=== PATIENT | male | born 1970 | race Caucasian/White ===

== ENCOUNTER 2021-02-16 10:05 | Observation (INO) | payer MEDICARE, OTHER ==
[2021-02-16] MEDS ORDERED: Aspirin Chewable 81 MG TAB ONE (10:42)
[2021-02-16 10:45] LABS: #Basophils 0.1 thou/uL (0.0-0.2); #Eosinphils 0.1 thou/uL (0.0-0.7); #Lymphocytes 2.1 thou/uL (1.20-3.40); #Monocytes 0.5 thou/uL (0.11-0.59); #Neutrophils 5.7 thou/uL (1.40-6.50); %Basophils 0.9 % (0.0-1.0); %Eosinophils 1.7 % (0.0-10.0); %Lymphocytes 25.1 % (21.0-51.0); %Monocytes 5.9 % (0.0-10.0); %Neutrophils 66.4 % (42.0-75.0); Hemoglobin 14.5 g/dL (14.0-18.0); Mean Corpuscular HGB CONC 33.7 g/dL (32.0-36.0); Mean Corpuscular Hemoglobin 30.9 pg (27.0-31.0); Mean Corpuscular Volume 91.8 fL (78.0-98.0); Mean Platelet Volume 8.4 fL (7.4-10.4); Platelet Count 198 thou/uL (130-400); RBC Distribution Width 12.1 % (11.5-14.5); Red Blood Cell (RBC) Count 4.67 mill/uL (4.70-6.10); White Blood Cell (WBC) Count 8.5 thou/uL (4.8-10.8)
[2021-02-16 11:05] LABS: ALT (SGPT) 16 U/L (8-55); AST (SGOT) 12 U/L (5-34); Alkaline Phosphatase 76 U/L (40-110); Anion Gap 13 mmol/L (10-20); BUN (Urea Nitrogen) 13 mg/dL (8.4-25.7); Bilirubin, Total 0.6 mg/dL (0.2-1.2); Calc. Creatinine Clearance 0 mL/min (70-130); Calcium 9.4 mg/dL (7.8-10.44); Carbon Dioxide 23 mmol/L (22-29); Chloride 105 mmol/L (98-107); Globulin 2.6 g/dL (2.4-3.5); Glucose 182 mg/dL (70-105); Potassium 3.8 mmol/L (3.5-5.1); Protein, Total 6.6 g/dL (6.0-8.3); Sodium 137 mmol/L (136-145)
[2021-02-16 11:27] LABS: CKMB 2.2 ng/mL (0-6.6)
[2021-02-16] MEDS ORDERED: Nitroglycerin 2% Ointment 1 INCH/1 GM Packet ONE (12:03)
[2021-02-16] MEDS ORDERED: traMADol HCl 50 MG TAB PO PRN (12:22)
[2021-02-16] MEDS ORDERED: Acetaminophen 325 MG TAB PO PRN (12:24)
[2021-02-16] MEDS ORDERED: Ondansetron PF 4 MG/2 ML Vial IVP PRN (12:24)
[2021-02-16] MEDS ORDERED: Dextrose 50% Abboject 50 ML SYRINGE SLOW IVP PRN (12:29)
[2021-02-16] MEDS ORDERED: Dextrose 5% in Water 1,000 ML IV PRN (12:29)
[2021-02-16 14:16] VITALS: BMI 31.4
[2021-02-16 14:53] LABS: Troponin I 0.037 ng/mL (< 0.028)
[2021-02-16] MEDS: HumaLOG 300 UNITS/3 ML VIAL SC PRN (16:40)
[2021-02-16 17:19] LABS: Troponin I 0.029 ng/mL (< 0.028)
[2021-02-16] MEDS: Ipratropium Bromide 2.5 ml Neb NEB SCH (18:02)
[2021-02-16] MEDS: Mometasone 100 MCG/Formoterol 5 MCG 120 PUFF INHALER INH SCH (18:02)
[2021-02-16 20:17] LABS: SARS-CoV-2 PCR by NAA Not Detected (NotDetected)
[2021-02-16] MEDS: Bupropion 150 MG XL TAB PO SCH (20:38)
[2021-02-16] MEDS: Carvedilol 6.25 MG TAB PO SCH (20:39)
[2021-02-16] MEDS: Sacubitril 49 MG/Valsartan 51 MG TABLET PO SCH (20:39)
[2021-02-16] MEDS ORDERED: HumaLOG 300 UNITS/3 ML VIAL SC PRN (20:57)
[2021-02-16] MEDS: busPIRone HCl 10 MG TAB PO SCH (21:00)
[2021-02-16] MEDS ORDERED: Lantus 1000 UNITS/10 ML VIAL SC SCH (21:00)
[2021-02-16] MEDS ORDERED: Atorvastatin Calcium 40 MG TAB PO SCH (21:00)
[2021-02-17] MEDS: Ipratropium Bromide 2.5 ml Neb NEB SCH ×2 (01:21→06:52)
[2021-02-17] MEDS: HumaLOG 300 UNITS/3 ML VIAL SC PRN (05:49)
[2021-02-17 06:11] LABS: #Basophils 0.1 thou/uL (0.0-0.2); #Eosinphils 0.2 thou/uL (0.0-0.7); #Lymphocytes 2.2 thou/uL (1.20-3.40); #Monocytes 0.7 thou/uL (0.11-0.59); #Neutrophils 6.2 thou/uL (1.40-6.50); %Basophils 1.5 % (0.0-1.0); %Eosinophils 2.3 % (0.0-10.0); %Lymphocytes 23.5 % (21.0-51.0); %Neutrophils 65.7 % (42.0-75.0); Mean Corpuscular HGB CONC 34.2 g/dL (32.0-36.0); Mean Corpuscular Hemoglobin 31.4 pg (27.0-31.0); Mean Corpuscular Volume 91.7 fL (78.0-98.0); Mean Platelet Volume 9.2 fL (7.4-10.4); Platelet Count 196 thou/uL (130-400); RBC Distribution Width 12.1 % (11.5-14.5); Red Blood Cell (RBC) Count 4.77 mill/uL (4.70-6.10); White Blood Cell (WBC) Count 9.5 thou/uL (4.8-10.8)
[2021-02-17 06:38] LABS: Anion Gap 13 mmol/L (10-20); BUN (Urea Nitrogen) 13 mg/dL (8.4-25.7); Calc. Creatinine Clearance 119 mL/min (70-130); Calcium 9.5 mg/dL (7.8-10.44); Carbon Dioxide 21 mmol/L (22-29); Chloride 108 mmol/L (98-107); Glucose 183 mg/dL (70-105); Potassium 3.9 mmol/L (3.5-5.1); Sodium 138 mmol/L (136-145)
[2021-02-17] MEDS: Mometasone 100 MCG/Formoterol 5 MCG 120 PUFF INHALER INH SCH (06:53)
[2021-02-17] MEDS: Carvedilol 6.25 MG TAB PO SCH (08:27)
[2021-02-17] MEDS: Sacubitril 49 MG/Valsartan 51 MG TABLET PO SCH (08:28)
[2021-02-17] MEDS: busPIRone HCl 10 MG TAB PO SCH (08:28)
[2021-02-17] MEDS: Bupropion 150 MG XL TAB PO SCH (08:28)
[2021-02-17] MEDS ORDERED: Clopidogrel Bisulfate 75 MG TAB PO SCH (09:00)
[2021-02-17] MEDS ORDERED: Aspirin Chewable 81 MG TAB PO SCH (09:00)
[2021-02-17] MEDS ORDERED: Enoxaparin Sodium 40 MG/0.4 ML SYRINGE SC SCH (09:00)
[2021-02-17] MEDS ORDERED: Spironolactone 25 MG TAB PO SCH (09:00)
[2021-02-17] MEDS ORDERED: Ezetimibe 10 MG TAB PO SCH (09:00)
[2021-02-17] MEDS ORDERED: Finasteride 5 MG TAB PO SCH (09:00)
[2021-02-17 11:38] VITALS: BP 119/79; TEMP 97.4
[2021-02-19] MEDS ORDERED: FLU VACC QS2021-22(6MOS UP)/PF 60 MCG/0.5 ML SYRINGE IM ONE (14:45)
== END 2021-02-17 11:15 | disposition home or self-care (01) ==
LOC: ERS 10:05 → 2SW 12:16
PROVIDERS: ADMIT Internal Medicine; ATTEND Internal Medicine
DX: M25.512 Pain in left shoulder (principal); M79.602 Pain in left arm; R68.84 Jaw pain; I25.10 Atherosclerotic heart disease of native coronary artery without angina pectoris; I11.0 Hypertensive heart disease with heart failure; I50.20 Unspecified systolic (congestive) heart failure; I25.2 Old myocardial infarction; I42.9 Cardiomyopathy, unspecified; E11.51 Type 2 diabetes mellitus with diabetic peripheral angiopathy without gangrene; E78.5 Hyperlipidemia, unspecified; F17.210 Nicotine dependence, cigarettes, uncomplicated; J44.9 Chronic obstructive pulmonary disease, unspecified; G47.30 Sleep apnea, unspecified; K21.9 Gastro-esophageal reflux disease without esophagitis; Z20.822 Contact with and (suspected) exposure to COVID-19; Z95.5 Presence of coronary angioplasty implant and graft; Z95.1 Presence of aortocoronary bypass graft; Z96.651 Presence of right artificial knee joint; Z79.82 Long term (current) use of aspirin; Z79.4 Long term (current) use of insulin; Z79.84 Long term (current) use of oral hypoglycemic drugs; Z79.02 Long term (current) use of antithrombotics/antiplatelets; Z79.899 Other long term (current) drug therapy
CPT/HCPCS: 71045; 80048; 80053; 82553; 82962 ×2; 84484 ×2; 85025 ×2; 93005; 94640 ×4; 96372; 99285; G0378 ×3; U0003; U0005; 36415; 36416; J1650; J1815

== ENCOUNTER 2021-03-04 08:17 | Inpatient (IN) | payer MEDICARE, OTHER ==
[2021-03-04] MEDS ORDERED: Ondansetron PF 4 MG/2 ML Vial ONE ×2 (08:55→08:56)
[2021-03-04 09:57] LABS: CKMB 8.3 ng/mL (0-6.6)
[2021-03-04] MEDS ORDERED: Enoxaparin Sodium 100 MG/ML SYRINGE ONE (10:22)
[2021-03-04] MEDS ORDERED: Ondansetron ODT 4 MG TAB PO PRN (10:48)
[2021-03-04] MEDS ORDERED: Ondansetron PF 4 MG/2 ML Vial IVP PRN (10:48)
[2021-03-04] MEDS ORDERED: Acetaminophen 325 MG TAB PO PRN (10:48)
[2021-03-04] MEDS ORDERED: traMADol HCl 50 MG TAB PO PRN (11:15)
[2021-03-04] MEDS ORDERED: Dextrose 5% in Water 1,000 ML IV PRN (11:21)
[2021-03-04] MEDS ORDERED: Dextrose 50% Abboject 50 ML SYRINGE SLOW IVP PRN (11:21)
[2021-03-04] MEDS ORDERED: HumaLOG 300 UNITS/3 ML VIAL SC PRN ×2 (11:21)
[2021-03-04 12:06] VITALS: BMI 30.9
[2021-03-04 12:37] LABS: Troponin I 1.341 ng/mL (< 0.028)
[2021-03-04] MEDS ORDERED: FLU VACC QS2021-22(6MOS UP)/PF 60 MCG/0.5 ML SYRINGE IM ONE (12:45)
[2021-03-04] MEDS ORDERED: Nitroglycerin 2% Ointment 1 INCH/1 GM Packet TOP SCH (14:00)
[2021-03-04] MEDS: Ipratropium Bromide 2.5 ml Neb NEB SCH ×2 (14:07→18:37)
[2021-03-04 15:21] LABS: Troponin I 1.421 ng/mL (< 0.028)
[2021-03-04] MEDS ORDERED: Communication Order-Pharmacy FS SCH (18:15)
[2021-03-04 18:21] LABS: Troponin I 1.943 ng/mL (< 0.028)
[2021-03-04] MEDS: Bupropion 150 MG XL TAB PO SCH (20:23)
[2021-03-04] MEDS: Sacubitril 49 MG/Valsartan 51 MG TABLET PO SCH (20:23)
[2021-03-04] MEDS: Atorvastatin Calcium 40 MG TAB PO SCH (20:23)
[2021-03-04] MEDS: busPIRone HCl 10 MG TAB PO SCH (20:23)
[2021-03-04] MEDS: Carvedilol 6.25 MG TAB PO SCH (20:24)
[2021-03-04] MEDS ORDERED: Lantus 1000 UNITS/10 ML VIAL SC SCH (21:00)
[2021-03-04] MEDS ORDERED: Enoxaparin Sodium 100 MG/ML SYRINGE SC SCH ×2 (21:00→22:30)
[2021-03-04] MEDS: Mometasone 100 MCG/Formoterol 5 MCG 120 PUFF INHALER INH SCH (22:57)
[2021-03-05 00:05] LABS: Amphetamine Not Detected (NotDetected); Barbiturates Screen Not Detected (NotDetected); Benzodiazepine Screen Not Detected (NotDetected); Cocaine Metabolite Screen Not Detected (NotDetected); Methadone Not Detected (NotDetected); Methamphetamine Not Detected (NotDetected); Opiate Screen Detected (NotDetected); Oxycodone Screen Not Detected (NotDetected); Phencyclidine (PCP) Not Detected (NotDetected); THC/Cannabinoid Screen Not Detected (NotDetected); Tricyclic Screen Not Detected (NotDetected)
[2021-03-05] MEDS: Ipratropium Bromide 2.5 ml Neb NEB SCH ×4 (01:29→19:53)
[2021-03-05 05:38] LABS: #Eosinphils 0.2 thou/uL (0.0-0.7); #Lymphocytes 2.1 thou/uL (1.20-3.40); #Monocytes 0.5 thou/uL (0.11-0.59); #Neutrophils 4.1 thou/uL (1.40-6.50); %Basophils 0.5 % (0.0-1.0); %Eosinophils 2.4 % (0.0-10.0); %Lymphocytes 30.5 % (21.0-51.0); %Monocytes 7.1 % (0.0-10.0); %Neutrophils 59.5 % (42.0-75.0); Hemoglobin 13.5 g/dL (14.0-18.0); Mean Corpuscular HGB CONC 33.7 g/dL (32.0-36.0); Mean Corpuscular Hemoglobin 30.9 pg (27.0-31.0); Mean Corpuscular Volume 91.9 fL (78.0-98.0); Mean Platelet Volume 8.3 fL (7.4-10.4); Platelet Count 209 thou/uL (130-400); RBC Distribution Width 12.3 % (11.5-14.5); Red Blood Cell (RBC) Count 4.35 mill/uL (4.70-6.10); White Blood Cell (WBC) Count 6.9 thou/uL (4.8-10.8)
[2021-03-05 06:08] LABS: Anion Gap 10 mmol/L (10-20); BUN (Urea Nitrogen) 17 mg/dL (8.4-25.7); Calc. Creatinine Clearance 107 mL/min (70-130); Calcium 9.1 mg/dL (7.8-10.44); Carbon Dioxide 24 mmol/L (22-29); Chloride 107 mmol/L (98-107); Glucose 185 mg/dL (70-105); Potassium 3.8 mmol/L (3.5-5.1); Sodium 137 mmol/L (136-145)
[2021-03-05 06:14] LABS: Critical Call Chem Troponin I RESULT DECREASING; Troponin I 1.152 ng/mL (< 0.028)
[2021-03-05] MEDS: Mometasone 100 MCG/Formoterol 5 MCG 120 PUFF INHALER INH SCH ×2 (07:28→19:54)
[2021-03-05] MEDS ORDERED: Liraglutide [Victoza 2-Pak] 0.6 MG/0.1 ML Pen.Injctr SC SCH (09:00)
[2021-03-05] MEDS ORDERED: Aspirin Chewable 81 MG TAB PO SCH (09:00)
[2021-03-05] MEDS: Montelukast Sodium 10 mg Tablet PO SCH (09:31)
[2021-03-05] MEDS: Clopidogrel Bisulfate 75 MG TAB PO SCH (09:32)
[2021-03-05] MEDS: busPIRone HCl 10 MG TAB PO SCH ×2 (09:32→20:22)
[2021-03-05] MEDS: Aspirin Chewable 81 MG TAB PO SCH (09:32)
[2021-03-05] MEDS: Bupropion 150 MG XL TAB PO SCH ×2 (09:32→20:21)
[2021-03-05] MEDS: Sacubitril 49 MG/Valsartan 51 MG TABLET PO SCH ×2 (09:32→20:21)
[2021-03-05] MEDS: Carvedilol 6.25 MG TAB PO SCH ×2 (09:32→20:21)
[2021-03-05] MEDS: Ezetimibe 10 MG TAB PO SCH (09:33)
[2021-03-05 14:14] LABS: SARS-CoV-2 PCR by NAA Not Detected (NotDetected)
[2021-03-05] MEDS: Lantus 1000 UNITS/10 ML VIAL SC SCH (20:21)
[2021-03-05] MEDS: Atorvastatin Calcium 40 MG TAB PO SCH (20:22)
[2021-03-06] MEDS: Ipratropium Bromide 2.5 ml Neb NEB SCH ×4 (01:30→18:46)
[2021-03-06 04:45] LABS: #Eosinphils 0.2 thou/uL (0.0-0.7); #Monocytes 0.5 thou/uL (0.11-0.59); #Neutrophils 3.7 thou/uL (1.40-6.50); %Basophils 0.7 % (0.0-1.0); %Eosinophils 2.6 % (0.0-10.0); %Lymphocytes 31.7 % (21.0-51.0); %Monocytes 7.6 % (0.0-10.0); %Neutrophils 57.5 % (42.0-75.0); Hemoglobin 13.3 g/dL (14.0-18.0); Mean Corpuscular HGB CONC 33.8 g/dL (32.0-36.0); Mean Corpuscular Hemoglobin 31.1 pg (27.0-31.0); Mean Corpuscular Volume 92.1 fL (78.0-98.0); Mean Platelet Volume 8.1 fL (7.4-10.4); Platelet Count 214 thou/uL (130-400); RBC Distribution Width 12.3 % (11.5-14.5); Red Blood Cell (RBC) Count 4.27 mill/uL (4.70-6.10); White Blood Cell (WBC) Count 6.4 thou/uL (4.8-10.8)
[2021-03-06 05:07] LABS: Anion Gap 10 mmol/L (10-20); BUN (Urea Nitrogen) 16 mg/dL (8.4-25.7); Calc. Creatinine Clearance 95 mL/min (70-130); Calcium 9.3 mg/dL (7.8-10.44); Carbon Dioxide 26 mmol/L (22-29); Chloride 106 mmol/L (98-107); Glucose 233 mg/dL (70-105); Potassium 3.7 mmol/L (3.5-5.1); Sodium 138 mmol/L (136-145)
[2021-03-06 05:25] LABS: Troponin I 0.764 ng/mL (< 0.028)
[2021-03-06] MEDS: Mometasone 100 MCG/Formoterol 5 MCG 120 PUFF INHALER INH SCH ×2 (07:07→18:47)
[2021-03-06] MEDS ORDERED: Iopamidol 370 76% 100 ML VIAL ONE (09:35)
[2021-03-06] MEDS: busPIRone HCl 10 MG TAB PO SCH ×2 (09:55→21:31)
[2021-03-06] MEDS: Aspirin Chewable 81 MG TAB PO SCH (09:55)
[2021-03-06] MEDS: Carvedilol 6.25 MG TAB PO SCH ×2 (09:55→21:31)
[2021-03-06] MEDS: Clopidogrel Bisulfate 75 MG TAB PO SCH (09:55)
[2021-03-06] MEDS: Ezetimibe 10 MG TAB PO SCH (09:55)
[2021-03-06] MEDS: Bupropion 150 MG XL TAB PO SCH ×2 (09:55→21:32)
[2021-03-06] MEDS: Montelukast Sodium 10 mg Tablet PO SCH (09:55)
[2021-03-06] MEDS: Sacubitril 49 MG/Valsartan 51 MG TABLET PO SCH ×2 (09:55→21:31)
[2021-03-06] MEDS ORDERED: Furosemide 40 MG/4 ML VIAL SLOW IVP SCH (10:30)
[2021-03-06] MEDS ORDERED: Dextrose 50% Abboject 50 ML SYRINGE SLOW IVP PRN (16:05)
[2021-03-06] MEDS ORDERED: Dextrose 5% in Water 1,000 ML IV PRN (16:05)
[2021-03-06] MEDS: Lantus 1000 UNITS/10 ML VIAL SC SCH (21:32)
[2021-03-06] MEDS: Atorvastatin Calcium 40 MG TAB PO SCH (21:32)
[2021-03-07] MEDS: Ipratropium Bromide 2.5 ml Neb NEB SCH ×4 (01:54→18:57)
[2021-03-07 05:28] LABS: Anion Gap 13 mmol/L (10-20); BUN (Urea Nitrogen) 19 mg/dL (8.4-25.7); Calc. Creatinine Clearance 83 mL/min (70-130); Calcium 9.6 mg/dL (7.8-10.44); Carbon Dioxide 25 mmol/L (22-29); Chloride 106 mmol/L (98-107); Glucose 163 mg/dL (70-105); Sodium 140 mmol/L (136-145)
[2021-03-07] MEDS: Nitroglycerin 0.4 MG TAB (25 Tab Bottle) SL PRN (05:58)
[2021-03-07] MEDS: HumaLOG 300 UNITS/3 ML VIAL SC PRN (06:25)
[2021-03-07] MEDS: Mometasone 100 MCG/Formoterol 5 MCG 120 PUFF INHALER INH SCH ×2 (06:43→18:54)
[2021-03-07 08:11] LABS: #Basophils 0.1 thou/uL (0.0-0.2); #Eosinphils 0.1 thou/uL (0.0-0.7); #Lymphocytes 2.1 thou/uL (1.20-3.40); #Monocytes 0.5 thou/uL (0.11-0.59); #Neutrophils 5.9 thou/uL (1.40-6.50); %Basophils 0.8 % (0.0-1.0); %Eosinophils 1.5 % (0.0-10.0); %Lymphocytes 23.8 % (21.0-51.0); %Monocytes 5.8 % (0.0-10.0); %Neutrophils 68.1 % (42.0-75.0); Hemoglobin 14.6 g/dL (14.0-18.0); Mean Corpuscular HGB CONC 33.5 g/dL (32.0-36.0); Mean Corpuscular Hemoglobin 31.1 pg (27.0-31.0); Mean Corpuscular Volume 92.7 fL (78.0-98.0); Mean Platelet Volume 8.4 fL (7.4-10.4); Platelet Count 220 thou/uL (130-400); RBC Distribution Width 12.3 % (11.5-14.5); Red Blood Cell (RBC) Count 4.69 mill/uL (4.70-6.10); White Blood Cell (WBC) Count 8.7 thou/uL (4.8-10.8)
[2021-03-07] MEDS: Sacubitril 49 MG/Valsartan 51 MG TABLET PO SCH ×2 (08:55→21:20)
[2021-03-07] MEDS: busPIRone HCl 10 MG TAB PO SCH ×2 (08:55→21:20)
[2021-03-07] MEDS: Aspirin Chewable 81 MG TAB PO SCH (08:55)
[2021-03-07] MEDS: Carvedilol 6.25 MG TAB PO SCH ×2 (08:56→21:19)
[2021-03-07] MEDS: Ezetimibe 10 MG TAB PO SCH (08:56)
[2021-03-07] MEDS: Montelukast Sodium 10 mg Tablet PO SCH (08:56)
[2021-03-07] MEDS: Clopidogrel Bisulfate 75 MG TAB PO SCH (08:56)
[2021-03-07] MEDS: Bupropion 150 MG XL TAB PO SCH ×2 (08:56→21:20)
[2021-03-07] MEDS ORDERED: Spironolactone 25 MG TAB PO SCH (11:15)
[2021-03-07] MEDS ORDERED: HumaLOG 300 UNITS/3 ML VIAL SC PRN (19:40)
[2021-03-07] MEDS ORDERED: Dextrose 50% Abboject 50 ML SYRINGE SLOW IVP PRN (19:40)
[2021-03-07] MEDS ORDERED: Dextrose 5% in Water 1,000 ML IV PRN (19:40)
[2021-03-07] MEDS: Atorvastatin Calcium 40 MG TAB PO SCH (21:20)
[2021-03-07] MEDS: Lantus 1000 UNITS/10 ML VIAL SC SCH (21:30)
[2021-03-08] MEDS: Ipratropium Bromide 2.5 ml Neb NEB SCH ×4 (00:08→18:47)
[2021-03-08] MEDS: Nitroglycerin 0.4 MG TAB (25 Tab Bottle) SL PRN ×2 (05:36→06:03)
[2021-03-08 05:50] LABS: #Eosinphils 0.1 thou/uL (0.0-0.7); #Lymphocytes 2.3 thou/uL (1.20-3.40); #Monocytes 0.6 thou/uL (0.11-0.59); #Neutrophils 5.9 thou/uL (1.40-6.50); %Basophils 0.4 % (0.0-1.0); %Eosinophils 1.3 % (0.0-10.0); %Lymphocytes 25.3 % (21.0-51.0); %Monocytes 6.4 % (0.0-10.0); %Neutrophils 66.6 % (42.0-75.0); Hemoglobin 13.9 g/dL (14.0-18.0); Mean Corpuscular Hemoglobin 31.3 pg (27.0-31.0); Mean Platelet Volume 8.1 fL (7.4-10.4); Platelet Count 227 thou/uL (130-400); RBC Distribution Width 12.2 % (11.5-14.5); Red Blood Cell (RBC) Count 4.43 mill/uL (4.70-6.10); White Blood Cell (WBC) Count 8.9 thou/uL (4.8-10.8)
[2021-03-08 06:07] LABS: Anion Gap 12 mmol/L (10-20); BUN (Urea Nitrogen) 21 mg/dL (8.4-25.7); Calc. Creatinine Clearance 90 mL/min (70-130); Carbon Dioxide 25 mmol/L (22-29); Chloride 106 mmol/L (98-107); Potassium 4.1 mmol/L (3.5-5.1); Sodium 139 mmol/L (136-145)
[2021-03-08 06:08] LABS: Calcium 9.4 mg/dL (7.8-10.44); Glucose 150 mg/dL (70-105)
[2021-03-08] MEDS: Mometasone 100 MCG/Formoterol 5 MCG 120 PUFF INHALER INH SCH ×2 (07:12→18:42)
[2021-03-08] MEDS: busPIRone HCl 10 MG TAB PO SCH ×2 (09:05→20:56)
[2021-03-08] MEDS: Carvedilol 6.25 MG TAB PO SCH ×2 (09:05→20:55)
[2021-03-08] MEDS: Ezetimibe 10 MG TAB PO SCH (09:05)
[2021-03-08] MEDS: Aspirin Chewable 81 MG TAB PO SCH (09:05)
[2021-03-08] MEDS: Clopidogrel Bisulfate 75 MG TAB PO SCH (09:06)
[2021-03-08] MEDS: Sacubitril 49 MG/Valsartan 51 MG TABLET PO SCH ×2 (09:06→20:56)
[2021-03-08] MEDS: Montelukast Sodium 10 mg Tablet PO SCH (09:06)
[2021-03-08] MEDS: Bupropion 150 MG XL TAB PO SCH ×2 (09:09→20:55)
[2021-03-08] MEDS: Empagliflozin 10 MG TAB PO SCH (09:09)
[2021-03-08] MEDS ORDERED: Furosemide 20 MG/2 ML VIAL SLOW IVP SCH (14:45)
[2021-03-08] MEDS: Atorvastatin Calcium 40 MG TAB PO SCH (20:55)
[2021-03-08] MEDS: Lantus 1000 UNITS/10 ML VIAL SC SCH (20:56)
[2021-03-09] MEDS: Ipratropium Bromide 2.5 ml Neb NEB SCH ×4 (00:12→18:50)
[2021-03-09] MEDS: HumaLOG 300 UNITS/3 ML VIAL SC PRN (05:42)
[2021-03-09 05:44] LABS: Anion Gap 13 mmol/L (10-20); BUN (Urea Nitrogen) 24 mg/dL (8.4-25.7); Calc. Creatinine Clearance 81 mL/min (70-130); Calcium 9.8 mg/dL (7.8-10.44); Carbon Dioxide 26 mmol/L (22-29); Chloride 106 mmol/L (98-107); Glucose 150 mg/dL (70-105); Magnesium 2.1 mg/dL (1.6-2.6); Potassium 4.1 mmol/L (3.5-5.1); Sodium 141 mmol/L (136-145)
[2021-03-09] MEDS: Mometasone 100 MCG/Formoterol 5 MCG 120 PUFF INHALER INH SCH ×2 (06:30→18:56)
[2021-03-09] MEDS: Empagliflozin 10 MG TAB PO SCH (08:46)
[2021-03-09] MEDS: Bupropion 150 MG XL TAB PO SCH ×2 (08:46→21:56)
[2021-03-09] MEDS: Sacubitril 49 MG/Valsartan 51 MG TABLET PO SCH ×2 (08:47→21:56)
[2021-03-09] MEDS: Carvedilol 6.25 MG TAB PO SCH (08:47)
[2021-03-09] MEDS: Ezetimibe 10 MG TAB PO SCH (08:47)
[2021-03-09] MEDS: Montelukast Sodium 10 mg Tablet PO SCH (08:48)
[2021-03-09] MEDS: Clopidogrel Bisulfate 75 MG TAB PO SCH (08:48)
[2021-03-09] MEDS: busPIRone HCl 10 MG TAB PO SCH ×2 (08:48→21:56)
[2021-03-09] MEDS: Aspirin Chewable 81 MG TAB PO SCH (08:48)
[2021-03-09] MEDS ORDERED: Furosemide 20 MG/2 ML VIAL SLOW IVP SCH (09:00)
[2021-03-09] MEDS ORDERED: Communication Order-Pharmacy FS SCH (10:00)
[2021-03-09] MEDS ORDERED: Metolazone 5 MG TAB PO SCH (13:00)
[2021-03-09] MEDS: Sodium Chloride 0.9% 1,000 ML IV SCH (13:09)
[2021-03-09] MEDS: Carvedilol 25 MG TAB PO SCH (17:30)
[2021-03-09] MEDS: Atorvastatin Calcium 40 MG TAB PO SCH (21:56)
[2021-03-09] MEDS: Lantus 1000 UNITS/10 ML VIAL SC SCH ×2 (22:12→22:59)
[2021-03-10] MEDS: Sodium Chloride 0.9% 1,000 ML IV SCH ×3 (00:04→18:25)
[2021-03-10] MEDS: Ipratropium Bromide 2.5 ml Neb NEB SCH ×4 (01:46→19:18)
[2021-03-10 05:04] LABS: Anion Gap 17 mmol/L (10-20); BUN (Urea Nitrogen) 25 mg/dL (8.4-25.7); Calc. Creatinine Clearance 77 mL/min (70-130); Carbon Dioxide 17 mmol/L (22-29); Chloride 107 mmol/L (98-107); Glucose 172 mg/dL (70-105); Magnesium 2.2 mg/dL (1.6-2.6); Potassium 4.2 mmol/L (3.5-5.1); Sodium 137 mmol/L (136-145)
[2021-03-10] MEDS: Mometasone 100 MCG/Formoterol 5 MCG 120 PUFF INHALER INH SCH ×2 (07:30→19:16)
[2021-03-10 08:05] LABS: #Basophils 0.1 thou/uL (0.0-0.2); #Eosinphils 0.2 thou/uL (0.0-0.7); #Lymphocytes 2.1 thou/uL (1.20-3.40); #Monocytes 0.5 thou/uL (0.11-0.59); #Neutrophils 6.8 thou/uL (1.40-6.50); %Basophils 0.6 % (0.0-1.0); %Lymphocytes 21.4 % (21.0-51.0); %Monocytes 5.6 % (0.0-10.0); %Neutrophils 70.4 % (42.0-75.0); Hemoglobin 15.5 g/dL (14.0-18.0); Mean Corpuscular HGB CONC 33.4 g/dL (32.0-36.0); Mean Corpuscular Hemoglobin 30.8 pg (27.0-31.0); Mean Corpuscular Volume 92.5 fL (78.0-98.0); Mean Platelet Volume 8.3 fL (7.4-10.4); Platelet Count 254 thou/uL (130-400); RBC Distribution Width 12.3 % (11.5-14.5); Red Blood Cell (RBC) Count 5.02 mill/uL (4.70-6.10); White Blood Cell (WBC) Count 9.6 thou/uL (4.8-10.8)
[2021-03-10] MEDS ORDERED: Iopamidol 370 76% 100 ML VIAL ONE (09:23)
[2021-03-10] MEDS ORDERED: Fentanyl 100 MCG/2 ML VIAL ONE (09:49)
[2021-03-10] MEDS ORDERED: Midazolam HCl 2 mg/2 ml Vial ONE (09:49)
[2021-03-10] MEDS ORDERED: Heparin 10,000 UNITS/ 10 ML VIAL ONE (10:05)
[2021-03-10] MEDS ORDERED: Nitroglycerin 100MG/250ML BOT 0 ML ONE (10:05)
[2021-03-10] MEDS ORDERED: Clopidogrel Bisulfate 300 MG TAB ONE (10:13)
[2021-03-10] MEDS ORDERED: Sodium Chloride 0.9% 1,000 ML IV SCH (10:45)
[2021-03-10] MEDS: Clopidogrel Bisulfate 75 MG TAB PO SCH (11:56)
[2021-03-10] MEDS: busPIRone HCl 10 MG TAB PO SCH ×2 (11:56→20:40)
[2021-03-10] MEDS: Carvedilol 25 MG TAB PO SCH ×2 (11:56→16:39)
[2021-03-10] MEDS: Aspirin Chewable 81 MG TAB PO SCH (11:56)
[2021-03-10] MEDS: Bupropion 150 MG XL TAB PO SCH ×2 (11:56→20:40)
[2021-03-10] MEDS: Sacubitril 49 MG/Valsartan 51 MG TABLET PO SCH ×2 (11:57→20:40)
[2021-03-10] MEDS: Empagliflozin 10 MG TAB PO SCH (11:57)
[2021-03-10] MEDS: Montelukast Sodium 10 mg Tablet PO SCH (11:57)
[2021-03-10] MEDS: Ezetimibe 10 MG TAB PO SCH (11:57)
[2021-03-10] MEDS ORDERED: hydrALAZINE 20 MG/ML VIAL ONE (13:48)
[2021-03-10] MEDS ORDERED: hydrALAZINE 20 MG/ML VIAL SLOW IVP SCH (14:00)
[2021-03-10] MEDS: Atorvastatin Calcium 40 MG TAB PO SCH (20:41)
[2021-03-10] MEDS: Lantus 1000 UNITS/10 ML VIAL SC SCH (20:45)
[2021-03-11] MEDS: HumaLOG 300 UNITS/3 ML VIAL SC PRN ×3 (01:02→17:56)
[2021-03-11] MEDS: Ipratropium Bromide 2.5 ml Neb NEB SCH ×4 (01:11→18:56)
[2021-03-11 05:00] LABS: #Basophils 0.1 thou/uL (0.0-0.2); #Eosinphils 0.1 thou/uL (0.0-0.7); #Monocytes 0.7 thou/uL (0.11-0.59); #Neutrophils 7.6 thou/uL (1.40-6.50); %Basophils 0.5 % (0.0-1.0); %Eosinophils 0.8 % (0.0-10.0); %Lymphocytes 19.1 % (21.0-51.0); %Monocytes 6.3 % (0.0-10.0); %Neutrophils 73.3 % (42.0-75.0); Hemoglobin 16.5 g/dL (14.0-18.0); Mean Corpuscular HGB CONC 32.9 g/dL (32.0-36.0); Mean Corpuscular Hemoglobin 30.4 pg (27.0-31.0); Mean Corpuscular Volume 92.4 fL (78.0-98.0); Platelet Count 275 thou/uL (130-400); RBC Distribution Width 12.4 % (11.5-14.5); Red Blood Cell (RBC) Count 5.43 mill/uL (4.70-6.10); White Blood Cell (WBC) Count 10.4 thou/uL (4.8-10.8)
[2021-03-11 05:22] LABS: ALT (SGPT) 17 U/L (8-55); AST (SGOT) 15 U/L (5-34); Albumin 4.2 g/dL (3.5-5.0); Alkaline Phosphatase 82 U/L (40-110); Anion Gap 15 mmol/L (10-20); BUN (Urea Nitrogen) 25 mg/dL (8.4-25.7); Bilirubin, Total 0.6 mg/dL (0.2-1.2); Calc. Creatinine Clearance 76 mL/min (70-130); Calcium 10.2 mg/dL (7.8-10.44); Carbon Dioxide 25 mmol/L (22-29); Chloride 104 mmol/L (98-107); Globulin 3.4 g/dL (2.4-3.5); Glucose 82 mg/dL (70-105); Potassium 3.7 mmol/L (3.5-5.1); Protein, Total 7.6 g/dL (6.0-8.3); Sodium 140 mmol/L (136-145)
[2021-03-11] MEDS: Sodium Chloride 0.9% 1,000 ML IV SCH ×2 (06:04→18:32)
[2021-03-11] MEDS: Mometasone 100 MCG/Formoterol 5 MCG 120 PUFF INHALER INH SCH ×2 (06:46→18:55)
[2021-03-11] MEDS: Aspirin Chewable 81 MG TAB PO SCH (08:31)
[2021-03-11] MEDS: Bupropion 150 MG XL TAB PO SCH (08:31)
[2021-03-11] MEDS: Sacubitril 49 MG/Valsartan 51 MG TABLET PO SCH (08:31)
[2021-03-11] MEDS: Montelukast Sodium 10 mg Tablet PO SCH (08:31)
[2021-03-11] MEDS: Ezetimibe 10 MG TAB PO SCH (08:31)
[2021-03-11] MEDS: Clopidogrel Bisulfate 75 MG TAB PO SCH (08:31)
[2021-03-11] MEDS: busPIRone HCl 10 MG TAB PO SCH (08:31)
[2021-03-11] MEDS: Carvedilol 25 MG TAB PO SCH ×2 (08:32→16:10)
[2021-03-11] MEDS: Empagliflozin 10 MG TAB PO SCH (08:32)
[2021-03-11 16:09] VITALS: BP 112/65; TEMP 97.4
== END 2021-03-11 19:15 | disposition home or self-care (01) | DRG 246 ==
LOC: ERS 08:17 → 2NO 10:24
PROVIDERS: ADMIT Internal Medicine; ATTEND Internal Medicine
PROC: 027035Z Dilation of Coronary Artery, One Artery with Two Drug-eluting Intraluminal Devices, Percutaneous Approach (ICD-10-PCS; principal; 2021-03-10)
DX: I21.4 Non-ST elevation (NSTEMI) myocardial infarction (principal); I50.23 Acute on chronic systolic (congestive) heart failure; T82.855A Stenosis of coronary artery stent, initial encounter; N17.9 Acute kidney failure, unspecified; Z20.822 Contact with and (suspected) exposure to COVID-19; I11.0 Hypertensive heart disease with heart failure; E11.9 Type 2 diabetes mellitus without complications; E78.00 Pure hypercholesterolemia, unspecified; M06.9 Rheumatoid arthritis, unspecified; Z96.651 Presence of right artificial knee joint; J44.9 Chronic obstructive pulmonary disease, unspecified; F32.A Depression, unspecified; F41.9 Anxiety disorder, unspecified; F17.210 Nicotine dependence, cigarettes, uncomplicated; I25.10 Atherosclerotic heart disease of native coronary artery without angina pectoris; E78.5 Hyperlipidemia, unspecified; N40.0 Benign prostatic hyperplasia without lower urinary tract symptoms; I25.5 Ischemic cardiomyopathy; K21.9 Gastro-esophageal reflux disease without esophagitis; Z79.82 Long term (current) use of aspirin; Z79.84 Long term (current) use of oral hypoglycemic drugs; Z79.899 Other long term (current) drug therapy; Z95.1 Presence of aortocoronary bypass graft; I25.2 Old myocardial infarction; Z98.42 Cataract extraction status, left eye; Z98.41 Cataract extraction status, right eye; Z98.890 Other specified postprocedural states; Z79.4 Long term (current) use of insulin; Z95.5 Presence of coronary angioplasty implant and graft; Z91.19 Patient's noncompliance with other medical treatment and regimen; Z79.01 Long term (current) use of anticoagulants
CPT/HCPCS: 36415; 36416; 71045; 71275; 80048; 80053; 80306; 82553; 83735; 84484; 85025; 85347; 92928; 93005; 93010; 93306; 93454; 93798; 94640; 96372; 96374; 99152; 99153; C1725; C1769; C1874; C9600; J0360; J1644; J1650; J1815; J1940; J2250; J2405; J3010; J7050; Q9967; U0003; U0005

== ENCOUNTER 2021-04-22 12:48 | Observation (INO) | payer MEDICARE, OTHER ==
[2021-04-22 15:11] VITALS: BMI 32.3
[2021-04-22] MEDS ORDERED: FLU VACC QS2021-22(6MOS UP)/PF 60 MCG/0.5 ML SYRINGE IM ONE (15:45)
[2021-04-22] MEDS ORDERED: HumaLOG 300 UNITS/3 ML VIAL SC PRN ×2 (16:14)
[2021-04-22] MEDS ORDERED: Dextrose 5% in Water 1,000 ML IV PRN (16:14)
[2021-04-22] MEDS ORDERED: Nitroglycerin 0.4 MG TAB (25 Tab Bottle) SL PRN (16:14)
[2021-04-22] MEDS ORDERED: Dextrose 50% Abboject 50 ML SYRINGE SLOW IVP PRN (16:14)
[2021-04-22] MEDS ORDERED: Acetaminophen 325 MG TAB PO PRN (16:14)
[2021-04-22] MEDS ORDERED: Aspirin 325 mg Enteric Coated Tablet PO SCH (16:30)
[2021-04-22 17:15] LABS: Magnesium 1.8 mg/dL (1.6-2.6)
[2021-04-22 17:25] LABS: Troponin I 0.013 ng/mL (< 0.028)
[2021-04-22] MEDS ORDERED: Electrolyte Replacement Protocol 1 EACH FS SCH (18:15)
[2021-04-22] MEDS ORDERED: Electrolyte Replacement Protocol FS PRN (18:30)
[2021-04-22 20:33] LABS: Troponin I 0.012 ng/mL (< 0.028)
[2021-04-22] MEDS ORDERED: Atorvastatin Calcium 40 MG TAB PO SCH (21:00)
[2021-04-22] MEDS ORDERED: Magnesium 2 GM/50 ML 2 GM in Premix Bag 1 BAG IVPB SCH (21:00)
[2021-04-22] MEDS: Nitroglycerin 2% Ointment 1 INCH/1 GM Packet TOP SCH (22:00)
[2021-04-23 05:18] LABS: Hemoglobin A1c 8.1 % (4.0-6.0)
[2021-04-23] MEDS: Nitroglycerin 2% Ointment 1 INCH/1 GM Packet TOP SCH (05:45)
[2021-04-23 07:58] VITALS: TEMP 97.8
[2021-04-23] MEDS ORDERED: Spironolactone 25 MG TAB PO SCH (09:00)
[2021-04-23] MEDS ORDERED: Aspirin 325 mg Enteric Coated Tablet PO SCH (09:00)
[2021-04-23] MEDS ORDERED: Furosemide 40 MG/4 ML VIAL SLOW IVP SCH (10:45)
[2021-04-23 12:33] VITALS: BP 145/80
== END 2021-04-23 14:10 | disposition home or self-care (01) ==
LOC: 2NO 12:48
PROVIDERS: ADMIT Internal Medicine; ATTEND Family Medicine
DX: R07.89 Other chest pain (principal); R06.02 Shortness of breath; R11.2 Nausea with vomiting, unspecified; I25.10 Atherosclerotic heart disease of native coronary artery without angina pectoris; R00.1 Bradycardia, unspecified; I25.5 Ischemic cardiomyopathy; E11.9 Type 2 diabetes mellitus without complications; I11.0 Hypertensive heart disease with heart failure; I50.20 Unspecified systolic (congestive) heart failure; E78.5 Hyperlipidemia, unspecified; I25.2 Old myocardial infarction; J44.9 Chronic obstructive pulmonary disease, unspecified; M06.9 Rheumatoid arthritis, unspecified; Z87.891 Personal history of nicotine dependence; Z79.02 Long term (current) use of antithrombotics/antiplatelets; Z79.4 Long term (current) use of insulin; Z79.82 Long term (current) use of aspirin; Z79.84 Long term (current) use of oral hypoglycemic drugs; Z79.899 Other long term (current) drug therapy; Z95.5 Presence of coronary angioplasty implant and graft; Z20.822 Contact with and (suspected) exposure to COVID-19
CPT/HCPCS: 36415; 36416; 83036; 83735; 83880; 84443; 94760; 96374; 96375; G0378; J1815; J1940; J3475

== ENCOUNTER 2021-09-21 19:30 | Outpatient (CLI) | payer MEDICARE, OTHER | END 2021-09-21 19:31 | disposition home or self-care (01) | LOC: SLEEPLAB 19:30 | PROVIDERS: ATTEND Internal Medicine | DX: G47.33 Obstructive sleep apnea (adult) (pediatric) (principal); R06.83 Snoring; G47.10 Hypersomnia, unspecified; J44.9 Chronic obstructive pulmonary disease, unspecified; R06.00 Dyspnea, unspecified; I11.0 Hypertensive heart disease with heart failure; I50.9 Heart failure, unspecified; E11.9 Type 2 diabetes mellitus without complications; G47.00 Insomnia, unspecified; I21.9 Acute myocardial infarction, unspecified | CPT/HCPCS: 95810 ==

== ENCOUNTER 2021-09-22 16:20 | Emergency (ER) | payer MEDICARE, OTHER ==
[2021-09-22 16:46] LABS: #Basophils 0.1 thou/uL (0.0-0.2); #Eosinphils 0.1 thou/uL (0.0-0.7); #Lymphocytes 2.4 thou/uL (1.20-3.40); #Monocytes 0.7 thou/uL (0.11-0.59); #Neutrophils 8.6 thou/uL (1.40-6.50); %Basophils 0.5 % (0.0-1.0); %Eosinophils 1.1 % (0.0-10.0); %Lymphocytes 19.8 % (21.0-51.0); %Monocytes 5.6 % (0.0-10.0); %Neutrophils 72.9 % (42.0-75.0); Hemoglobin 15.9 g/dL (14.0-18.0); Mean Corpuscular HGB CONC 33.9 g/dL (32.0-36.0); Mean Corpuscular Hemoglobin 31.3 pg (27.0-31.0); Mean Corpuscular Volume 92.4 fL (78.0-98.0); Mean Platelet Volume 7.4 fL (7.4-10.4); Platelet Count 262 thou/uL (130-400); RBC Distribution Width 12.1 % (11.5-14.5); Red Blood Cell (RBC) Count 5.09 mill/uL (4.70-6.10); White Blood Cell (WBC) Count 11.8 thou/uL (4.8-10.8)
[2021-09-22 16:57] LABS: PTT 23.9 sec (22.9-36.1); Prothrombin Time 11.8 sec (12.0-14.7)
[2021-09-22 16:58] LABS: INR-International Normal Ratio 0.9
[2021-09-22 17:12] LABS: ALT (SGPT) 23 U/L (8-55); AST (SGOT) 17 U/L (5-34); Albumin 4.7 g/dL (3.5-5.0); Alkaline Phosphatase 92 U/L (40-110); Anion Gap 16 mmol/L (10-20); BUN (Urea Nitrogen) 20 mg/dL (8.4-25.7); Bilirubin, Total 0.4 mg/dL (0.2-1.2); CK (CPK) 149 U/L (30-200); Calc. Creatinine Clearance 0 mL/min (70-130); Calcium 10.7 mg/dL (7.8-10.44); Carbon Dioxide 21 mmol/L (22-29); Chloride 106 mmol/L (98-107); Globulin 3.5 g/dL (2.4-3.5); Glucose 203 mg/dL (70-105); Magnesium 2.3 mg/dL (1.6-2.6); Potassium 4.3 mmol/L (3.5-5.1); Protein, Total 8.2 g/dL (6.0-8.3); Sodium 139 mmol/L (136-145)
== END 2021-09-22 19:24 | disposition home or self-care (01) ==
LOC: ERS 16:20
DX: E11.42 Type 2 diabetes mellitus with diabetic polyneuropathy (principal); I11.0 Hypertensive heart disease with heart failure; I50.9 Heart failure, unspecified; E78.00 Pure hypercholesterolemia, unspecified; I25.2 Old myocardial infarction; J44.9 Chronic obstructive pulmonary disease, unspecified; Z87.891 Personal history of nicotine dependence; Z79.82 Long term (current) use of aspirin; Z79.4 Long term (current) use of insulin; Z79.899 Other long term (current) drug therapy
CPT/HCPCS: 36415; 36416; 70450; 71045; 80053; 82550; 83605; 83735; 83880; 84484; 85025; 85610; 85730; 93005

== ENCOUNTER 2021-11-16 18:35 | Inpatient (IN) | payer OTHER ==
[2021-11-16] MEDS ORDERED: Morphine 4 MG/ML VIAL ONE (19:03)
[2021-11-16] MEDS ORDERED: Ondansetron PF 4 MG/2 ML Vial ONE (19:04)
[2021-11-16 19:23] LABS: #Basophils 0.1 thou/uL (0.0-0.2); #Eosinphils 0.1 thou/uL (0.0-0.7); #Lymphocytes 2.9 thou/uL (1.20-3.40); #Monocytes 0.8 thou/uL (0.11-0.59); %Basophils 0.7 % (0.0-1.0); %Eosinophils 0.9 % (0.0-10.0); %Lymphocytes 24.1 % (21.0-51.0); %Monocytes 7.1 % (0.0-10.0); %Neutrophils 67.2 % (42.0-75.0); Hemoglobin 16.9 g/dL (14.0-18.0); Mean Corpuscular HGB CONC 36.2 g/dL (32.0-36.0); Mean Corpuscular Hemoglobin 33.4 pg (27.0-31.0); Mean Corpuscular Volume 92.5 fL (78.0-98.0); Platelet Count 193 thou/uL (130-400); RBC Distribution Width 11.6 % (11.5-14.5); Red Blood Cell (RBC) Count 5.05 mill/uL (4.70-6.10); White Blood Cell (WBC) Count 11.9 thou/uL (4.8-10.8)
[2021-11-16 19:38] LABS: ALT (SGPT) 23 U/L (8-55); AST (SGOT) 21 U/L (5-34); Albumin 4.5 g/dL (3.5-5.0); Alkaline Phosphatase 96 U/L (40-110); Anion Gap 19 mmol/L (10-20); BUN (Urea Nitrogen) 31 mg/dL (8.4-25.7); Bilirubin, Total 0.4 mg/dL (0.2-1.2); CK (CPK) 161 U/L (30-200); Calc. Creatinine Clearance 0 mL/min (70-130); Calcium 10.2 mg/dL (7.8-10.44); Carbon Dioxide 23 mmol/L (22-29); Chloride 99 mmol/L (98-107); Estimated GFR 59; Glucose 514 mg/dL (70-105); Potassium 4.8 mmol/L (3.5-5.1); Protein, Total 7.5 g/dL (6.0-8.3); Sodium 136 mmol/L (136-145)
[2021-11-16 19:58] LABS: CKMB 2.9 ng/mL (0-6.6)
[2021-11-16 23:47] LABS: Troponin I 0.079 ng/mL (< 0.028)
[2021-11-17] MEDS ORDERED: hydrALAZINE 20 MG/ML VIAL SLOW IVP PRN (00:44)
[2021-11-17 01:37] VITALS: BMI 32.8
[2021-11-17 02:29] LABS: Troponin I 0.074 ng/mL (< 0.028)
[2021-11-17] MEDS ORDERED: Acetaminophen 325 MG TAB PO PRN (04:34)
[2021-11-17] MEDS ORDERED: Ondansetron PF 4 MG/2 ML Vial IVP PRN (04:34)
[2021-11-17] MEDS ORDERED: Dextrose 50% Abboject 50 ML SYRINGE SLOW IVP PRN (04:35)
[2021-11-17] MEDS ORDERED: Dextrose 5% in Water 1,000 ML IV PRN (04:35)
[2021-11-17 05:03] LABS: #Basophils 0.1 thou/uL (0.0-0.2); #Eosinphils 0.1 thou/uL (0.0-0.7); #Lymphocytes 2.8 thou/uL (1.20-3.40); #Monocytes 0.6 thou/uL (0.11-0.59); #Neutrophils 7.6 thou/uL (1.40-6.50); %Basophils 0.6 % (0.0-1.0); %Eosinophils 1.3 % (0.0-10.0); %Lymphocytes 24.9 % (21.0-51.0); %Monocytes 5.5 % (0.0-10.0); %Neutrophils 67.7 % (42.0-75.0); Hemoglobin 15.4 g/dL (14.0-18.0); Mean Corpuscular HGB CONC 35.2 g/dL (32.0-36.0); Mean Corpuscular Hemoglobin 32.6 pg (27.0-31.0); Mean Corpuscular Volume 92.8 fL (78.0-98.0); Mean Platelet Volume 8.5 fL (7.4-10.4); Platelet Count 166 thou/uL (130-400); RBC Distribution Width 11.6 % (11.5-14.5); Red Blood Cell (RBC) Count 4.73 mill/uL (4.70-6.10); White Blood Cell (WBC) Count 11.2 thou/uL (4.8-10.8)
[2021-11-17 05:27] LABS: Anion Gap 13 mmol/L (10-20); BUN (Urea Nitrogen) 20 mg/dL (8.4-25.7); Calc. Creatinine Clearance 121 mL/min (70-130); Calcium 8.9 mg/dL (7.8-10.44); Carbon Dioxide 23 mmol/L (22-29); Chloride 104 mmol/L (98-107); Estimated GFR 89; Glucose 281 mg/dL (70-105); Potassium 4.1 mmol/L (3.5-5.1); Sodium 136 mmol/L (136-145)
[2021-11-17] MEDS: HumaLOG 300 UNITS/3 ML VIAL SC PRN ×3 (06:00→20:21)
[2021-11-17] MEDS: Ipratropium Bromide 2.5 ml Neb NEB SCH ×4 (07:02→23:27)
[2021-11-17] MEDS ORDERED: Furosemide 20 MG TAB PO SCH (09:00)
[2021-11-17] MEDS ORDERED: Aspirin 81 mg Enteric Coated Tablet PO SCH ×2 (09:00→17:15)
[2021-11-17] MEDS ORDERED: Ezetimibe 10 MG TAB PO SCH (09:00)
[2021-11-17] MEDS ORDERED: Spironolactone 25 MG TAB PO SCH (09:00)
[2021-11-17] MEDS ORDERED: Sacubitril 49 MG/Valsartan 51 MG TABLET PO SCH (09:00)
[2021-11-17] MEDS: Enoxaparin Sodium 40 MG/0.4 ML SYRINGE SC SCH (10:18)
[2021-11-17] MEDS: DULoxetine 30 MG CAP PO SCH (10:18)
[2021-11-17] MEDS: Gabapentin 100 MG CAP PO SCH (10:18)
[2021-11-17] MEDS: Finasteride 5 MG TAB PO SCH (10:18)
[2021-11-17] MEDS: Clopidogrel Bisulfate 75 MG TAB PO SCH (10:19)
[2021-11-17] MEDS: busPIRone HCl 10 MG TAB PO SCH ×2 (10:19→20:18)
[2021-11-17] MEDS: Tamsulosin HCl 0.4 MG CAP PO SCH (10:19)
[2021-11-17] MEDS: Carvedilol 25 MG TAB PO SCH (10:19)
[2021-11-17] MEDS: Atorvastatin Calcium 40 MG TAB PO SCH (11:14)
[2021-11-17] MEDS ORDERED: Cyclobenzaprine 10 MG TAB PO PRN (17:45)
[2021-11-17] MEDS: Ezetimibe 10 MG TAB PO SCH (20:18)
[2021-11-17] MEDS: Insulin Glargine 30 UNITS/0.3 ML VIAL SC SCH (20:18)
[2021-11-17] MEDS ORDERED: Insulin Glargine 30 UNITS/0.3 ML VIAL SC SCH (21:00)
[2021-11-18 05:09] LABS: #Basophils 0.1 thou/uL (0.0-0.2); #Eosinphils 0.1 thou/uL (0.0-0.7); #Lymphocytes 2.8 thou/uL (1.20-3.40); #Monocytes 0.7 thou/uL (0.11-0.59); %Basophils 0.8 % (0.0-1.0); %Eosinophils 1.3 % (0.0-10.0); %Lymphocytes 26.4 % (21.0-51.0); %Monocytes 6.3 % (0.0-10.0); %Neutrophils 65.3 % (42.0-75.0); Mean Corpuscular HGB CONC 33.7 g/dL (32.0-36.0); Mean Corpuscular Hemoglobin 31.4 pg (27.0-31.0); Mean Platelet Volume 8.6 fL (7.4-10.4); Platelet Count 168 thou/uL (130-400); RBC Distribution Width 11.6 % (11.5-14.5); Red Blood Cell (RBC) Count 4.76 mill/uL (4.70-6.10); White Blood Cell (WBC) Count 10.7 thou/uL (4.8-10.8)
[2021-11-18 05:31] LABS: Anion Gap 12 mmol/L (10-20); BUN (Urea Nitrogen) 23 mg/dL (8.4-25.7); Calc. Creatinine Clearance 102 mL/min (70-130); Calcium 9.4 mg/dL (7.8-10.44); Carbon Dioxide 27 mmol/L (22-29); Cardiac Risk 5.5 (Less than 4.5); Chloride 104 mmol/L (98-107); Cholesterol 218 mg/dl (< 200 Desired); Estimated GFR 74; Glucose 280 mg/dL (70-105); HDL Cholesterol 40 mg/dL (>60 Neg Risk); LDL Cholesterol, Calculated 150 mg/dL; Potassium 4.6 mmol/L (3.5-5.1); Sodium 138 mmol/L (136-145); Triglycerides 141 mg/dL (Less than 150)
[2021-11-18] MEDS: HumaLOG 300 UNITS/3 ML VIAL SC PRN ×4 (06:13→20:40)
[2021-11-18] MEDS: hydrALAZINE 20 MG/ML VIAL SLOW IVP PRN (07:12)
[2021-11-18] MEDS: Ipratropium Bromide 2.5 ml Neb NEB SCH ×2 (07:18→11:17)
[2021-11-18] MEDS: Finasteride 5 MG TAB PO SCH (09:08)
[2021-11-18] MEDS: Tamsulosin HCl 0.4 MG CAP PO SCH (09:08)
[2021-11-18] MEDS: DULoxetine 30 MG CAP PO SCH (09:08)
[2021-11-18] MEDS: busPIRone HCl 10 MG TAB PO SCH ×2 (09:08→20:38)
[2021-11-18] MEDS: Aspirin 325 mg Enteric Coated Tablet PO SCH (09:09)
[2021-11-18] MEDS: Clopidogrel Bisulfate 75 MG TAB PO SCH (09:09)
[2021-11-18] MEDS: Atorvastatin Calcium 40 MG TAB PO SCH (09:09)
[2021-11-18] MEDS: Gabapentin 100 MG CAP PO SCH (09:09)
[2021-11-18] MEDS: Enoxaparin Sodium 40 MG/0.4 ML SYRINGE SC SCH (09:09)
[2021-11-18] MEDS: Carvedilol 25 MG TAB PO SCH (09:09)
[2021-11-18] MEDS ORDERED: Sacubitril 49 MG/Valsartan 51 MG TABLET PO SCH ×2 (10:15→10:30)
[2021-11-18] MEDS ORDERED: Furosemide 40 MG/4 ML VIAL SLOW IVP SCH (10:15)
[2021-11-18] MEDS ORDERED: Spironolactone 25 MG TAB PO SCH (10:15)
[2021-11-18] MEDS ORDERED: Insulin Glargine 30 UNITS/0.3 ML VIAL SC SCH ×2 (10:18→10:30)
[2021-11-18] MEDS: Empagliflozin 10 MG TAB PO SCH (10:38)
[2021-11-18] MEDS: Mometasone 200 MCG/Formoterol 5 MCG 120 PUFF INHALER INH SCH ×2 (11:15→19:17)
[2021-11-18] MEDS: Liraglutide [Victoza 3-Pak] 0.6 MG/0.1 ML Pen.Injctr SC SCH ×2 (17:55→17:56)
[2021-11-18] MEDS: Ezetimibe 10 MG TAB PO SCH (20:38)
[2021-11-18] MEDS: Sacubitril 49 MG/Valsartan 51 MG TABLET PO SCH (20:38)
[2021-11-18] MEDS: Insulin Glargine 30 UNITS/0.3 ML VIAL SC SCH (20:39)
[2021-11-19 05:08] LABS: #Eosinphils 0.1 thou/uL (0.0-0.7); #Lymphocytes 3.1 thou/uL (1.20-3.40); #Monocytes 0.8 thou/uL (0.11-0.59); #Neutrophils 8.3 thou/uL (1.40-6.50); %Basophils 0.4 % (0.0-1.0); %Eosinophils 0.8 % (0.0-10.0); %Lymphocytes 24.8 % (21.0-51.0); %Monocytes 6.3 % (0.0-10.0); %Neutrophils 67.7 % (42.0-75.0); Hemoglobin 16.6 g/dL (14.0-18.0); Mean Corpuscular HGB CONC 34.4 g/dL (32.0-36.0); Mean Corpuscular Hemoglobin 31.7 pg (27.0-31.0); Mean Corpuscular Volume 92.4 fL (78.0-98.0); Mean Platelet Volume 8.6 fL (7.4-10.4); Platelet Count 174 thou/uL (130-400); RBC Distribution Width 11.8 % (11.5-14.5); Red Blood Cell (RBC) Count 5.23 mill/uL (4.70-6.10); White Blood Cell (WBC) Count 12.3 thou/uL (4.8-10.8)
[2021-11-19 05:51] LABS: Anion Gap 17 mmol/L (10-20); BUN (Urea Nitrogen) 25 mg/dL (8.4-25.7); Calc. Creatinine Clearance 92 mL/min (70-130); Calcium 9.9 mg/dL (7.8-10.44); Carbon Dioxide 22 mmol/L (22-29); Chloride 103 mmol/L (98-107); Estimated GFR 65; Glucose 196 mg/dL (70-105); Potassium 3.9 mmol/L (3.5-5.1); Sodium 138 mmol/L (136-145)
[2021-11-19] MEDS: HumaLOG 300 UNITS/3 ML VIAL SC PRN ×4 (06:09→21:03)
[2021-11-19] MEDS: Mometasone 200 MCG/Formoterol 5 MCG 120 PUFF INHALER INH SCH ×2 (07:13→18:46)
[2021-11-19] MEDS: Gabapentin 100 MG CAP PO SCH (08:40)
[2021-11-19] MEDS: Spironolactone 25 MG TAB PO SCH (08:41)
[2021-11-19] MEDS: busPIRone HCl 10 MG TAB PO SCH ×2 (08:41→21:02)
[2021-11-19] MEDS: Atorvastatin Calcium 40 MG TAB PO SCH (08:41)
[2021-11-19] MEDS: Tamsulosin HCl 0.4 MG CAP PO SCH (08:41)
[2021-11-19] MEDS: Carvedilol 25 MG TAB PO SCH (08:41)
[2021-11-19] MEDS: Aspirin 325 mg Enteric Coated Tablet PO SCH (08:41)
[2021-11-19] MEDS: Sacubitril 49 MG/Valsartan 51 MG TABLET PO SCH ×2 (08:41→21:02)
[2021-11-19] MEDS: Enoxaparin Sodium 40 MG/0.4 ML SYRINGE SC SCH (08:42)
[2021-11-19] MEDS: Insulin Glargine 30 UNITS/0.3 ML VIAL SC SCH ×2 (08:42→21:02)
[2021-11-19] MEDS: Finasteride 5 MG TAB PO SCH (08:42)
[2021-11-19] MEDS: Clopidogrel Bisulfate 75 MG TAB PO SCH (08:42)
[2021-11-19] MEDS: Empagliflozin 10 MG TAB PO SCH (08:42)
[2021-11-19] MEDS: DULoxetine 30 MG CAP PO SCH (08:42)
[2021-11-19] MEDS: hydrALAZINE 20 MG/ML VIAL SLOW IVP PRN (10:39)
[2021-11-19] MEDS ORDERED: NIFEdipine XL 60 MG TAB PO SCH (17:45)
[2021-11-19] MEDS ORDERED: Furosemide 40 MG/4 ML VIAL SLOW IVP SCH (18:15)
[2021-11-19] MEDS ORDERED: NIFEdipine XL 30 MG TAB PO SCH (18:15)
[2021-11-19] MEDS ORDERED: Furosemide 40 MG TAB PO SCH (18:15)
[2021-11-19 18:48] LABS: Troponin I 0.033 ng/mL (< 0.028)
[2021-11-19] MEDS: Liraglutide [Victoza 3-Pak] 0.6 MG/0.1 ML Pen.Injctr SC SCH (19:02)
[2021-11-19] MEDS: Ezetimibe 10 MG TAB PO SCH (21:02)
[2021-11-20 05:45] LABS: #Basophils 0.1 thou/uL (0.0-0.2); #Eosinphils 0.1 thou/uL (0.0-0.7); #Lymphocytes 3.5 thou/uL (1.20-3.40); #Monocytes 0.8 thou/uL (0.11-0.59); #Neutrophils 9.2 thou/uL (1.40-6.50); %Basophils 0.6 % (0.0-1.0); %Lymphocytes 25.2 % (21.0-51.0); %Monocytes 6.1 % (0.0-10.0); %Neutrophils 67.1 % (42.0-75.0); Hemoglobin 18.1 g/dL (14.0-18.0); Mean Corpuscular HGB CONC 33.6 g/dL (32.0-36.0); Mean Corpuscular Hemoglobin 31.4 pg (27.0-31.0); Mean Corpuscular Volume 93.4 fL (78.0-98.0); Mean Platelet Volume 8.7 fL (7.4-10.4); Platelet Count 193 thou/uL (130-400); RBC Distribution Width 12.2 % (11.5-14.5); Red Blood Cell (RBC) Count 5.78 mill/uL (4.70-6.10); White Blood Cell (WBC) Count 13.7 thou/uL (4.8-10.8)
[2021-11-20 05:59] LABS: Anion Gap 15 mmol/L (10-20); BUN (Urea Nitrogen) 33 mg/dL (8.4-25.7); Calc. Creatinine Clearance 84 mL/min (70-130); Calcium 10.5 mg/dL (7.8-10.44); Carbon Dioxide 23 mmol/L (22-29); Chloride 103 mmol/L (98-107); Estimated GFR 59; Glucose 229 mg/dL (70-105); Sodium 137 mmol/L (136-145)
[2021-11-20] MEDS: HumaLOG 300 UNITS/3 ML VIAL SC PRN ×2 (06:07→10:42)
[2021-11-20] MEDS: Mometasone 200 MCG/Formoterol 5 MCG 120 PUFF INHALER INH SCH (07:36)
[2021-11-20] MEDS ORDERED: Furosemide 20 MG TAB PO SCH (09:00)
[2021-11-20] MEDS ORDERED: NIFEdipine XL 60 MG TAB PO SCH ×2 (09:00)
[2021-11-20] MEDS: Enoxaparin Sodium 40 MG/0.4 ML SYRINGE SC SCH (09:19)
[2021-11-20] MEDS: DULoxetine 30 MG CAP PO SCH (09:19)
[2021-11-20] MEDS: Sacubitril 49 MG/Valsartan 51 MG TABLET PO SCH (09:19)
[2021-11-20] MEDS: Aspirin 325 mg Enteric Coated Tablet PO SCH (09:20)
[2021-11-20] MEDS: busPIRone HCl 10 MG TAB PO SCH (09:20)
[2021-11-20] MEDS: Gabapentin 100 MG CAP PO SCH (09:21)
[2021-11-20] MEDS: Carvedilol 25 MG TAB PO SCH (09:21)
[2021-11-20] MEDS: Atorvastatin Calcium 40 MG TAB PO SCH (09:21)
[2021-11-20] MEDS: Spironolactone 25 MG TAB PO SCH (09:22)
[2021-11-20] MEDS: Clopidogrel Bisulfate 75 MG TAB PO SCH (09:22)
[2021-11-20] MEDS: Finasteride 5 MG TAB PO SCH (09:22)
[2021-11-20] MEDS: Tamsulosin HCl 0.4 MG CAP PO SCH (09:22)
[2021-11-20] MEDS: Insulin Glargine 30 UNITS/0.3 ML VIAL SC SCH (09:23)
[2021-11-20] MEDS: Empagliflozin 10 MG TAB PO SCH (09:23)
[2021-11-20] MEDS: Liraglutide [Victoza 3-Pak] 0.6 MG/0.1 ML Pen.Injctr SC SCH (09:24)
[2021-11-20 15:21] VITALS: BP 160/108; TEMP 97.3
== END 2021-11-20 19:20 | disposition home or self-care (01) | DRG 65 ==
LOC: ERS 18:35 → 2NO 23:02 → NEURO 23:59 → OBSVTOIN 11-17 16:45 → NEURO 11-17 18:52
PROVIDERS: ADMIT Hospitalist; ATTEND Hospitalist
DX: I63.81 Other cerebral infarction due to occlusion or stenosis of small artery (principal); I13.0 Hypertensive heart and chronic kidney disease with heart failure and stage 1 through stage 4 chronic kidney disease, or unspecified chronic kidney disease; N17.9 Acute kidney failure, unspecified; I50.22 Chronic systolic (congestive) heart failure; Z20.822 Contact with and (suspected) exposure to COVID-19; E11.65 Type 2 diabetes mellitus with hyperglycemia; H53.9 Unspecified visual disturbance; I25.10 Atherosclerotic heart disease of native coronary artery without angina pectoris; E11.22 Type 2 diabetes mellitus with diabetic chronic kidney disease; E78.5 Hyperlipidemia, unspecified; N18.30 Chronic kidney disease, stage 3 unspecified; R07.89 Other chest pain; Z96.651 Presence of right artificial knee joint; Z79.82 Long term (current) use of aspirin; Z79.4 Long term (current) use of insulin; Z79.899 Other long term (current) drug therapy; Z79.84 Long term (current) use of oral hypoglycemic drugs; Z95.1 Presence of aortocoronary bypass graft; Z95.5 Presence of coronary angioplasty implant and graft; Z95.810 Presence of automatic (implantable) cardiac defibrillator; Z98.42 Cataract extraction status, left eye; Z98.41 Cataract extraction status, right eye
CPT/HCPCS: 36415; 36416; 70551; 71045; 80048; 80053; 80061; 82550; 82553; 83036; 83880; 84484; 85025; 93005; 93306; 93880; 94640; 96361; 96374; 96375; G0378; J0360; J1650; J1815; J1940; J2270; J2405; J7620; U0003; U0005

== ENCOUNTER 2022-02-22 18:29 | Emergency (ER) | payer OTHER ==
[2022-02-22] MEDS ORDERED: Ketorolac Tromethamine 30 MG/ML VIAL ONE (18:59)
[2022-02-22] MEDS ORDERED: Dexamethasone 10 MG/ML VIAL ONE (18:59)
== END 2022-02-22 19:47 | disposition home or self-care (01) ==
LOC: ERS 18:29
DX: J06.9 Acute upper respiratory infection, unspecified (principal); I11.0 Hypertensive heart disease with heart failure; I50.9 Heart failure, unspecified; E11.9 Type 2 diabetes mellitus without complications; E78.00 Pure hypercholesterolemia, unspecified; J44.9 Chronic obstructive pulmonary disease, unspecified; Z87.891 Personal history of nicotine dependence
CPT/HCPCS: 87804; 96372; 99283; J1100; J1885

== ENCOUNTER 2022-02-26 12:54 | Outpatient (CLI) | payer OTHER | END 2022-02-26 12:55 | disposition home or self-care (01) | LOC: SCSRAD 12:54 | PROVIDERS: ATTEND Student in an Organized Health Care Education/Training Program | DX: R05.1 Acute cough (principal); Z20.822 Contact with and (suspected) exposure to COVID-19 | CPT/HCPCS: 71046; U0003; U0005 ==

== ENCOUNTER 2022-04-06 12:12 | Inpatient (IN) | payer OTHER ==
[2022-04-06 13:14] LABS: #Basophils 0.1 thou/uL (0.0-0.2); #Eosinphils 0.1 thou/uL (0.0-0.7); #Lymphocytes 1.9 thou/uL (1.20-3.40); #Monocytes 0.5 thou/uL (0.11-0.59); #Neutrophils 6.8 thou/uL (1.40-6.50); %Basophils 0.7 % (0.0-1.0); %Lymphocytes 20.2 % (21.0-51.0); %Monocytes 5.4 % (0.0-10.0); %Neutrophils 72.7 % (42.0-75.0); Hemoglobin 14.4 g/dL (14.0-18.0); Mean Corpuscular HGB CONC 33.4 g/dL (32.0-36.0); Mean Corpuscular Hemoglobin 31.1 pg (27.0-31.0); Mean Corpuscular Volume 92.9 fl (78.0-98.0); Mean Platelet Volume 9.1 fL (7.4-10.4); Platelet Count 166 10x3/uL (130-400); RBC Distribution Width 11.7 % (11.5-14.5); Red Blood Cell (RBC) Count 4.65 mill/uL (4.70-6.10); White Blood Cell (WBC) Count 9.4 10x3/uL (4.8-10.8)
[2022-04-06 13:33] LABS: ALT (SGPT) 69 U/L (8-55); AST (SGOT) 38 U/L (5-34); Alkaline Phosphatase 101 U/L (40-110); Anion Gap 16 mmol/L (10-20); BUN (Urea Nitrogen) 11 mg/dL (8.4-25.7); Bilirubin, Total 1.2 mg/dL (0.2-1.2); Calc. Creatinine Clearance 0 mL/min (70-130); Calcium 9.4 mg/dL (7.8-10.44); Carbon Dioxide 22 mmol/L (22-29); Chloride 103 mmol/L (98-107); Estimated GFR 76; Globulin 2.8 g/dL (2.4-3.5); Glucose 386 mg/dL (70-105); Lipase 20 U/L (8-78); Protein, Total 6.8 g/dL (6.0-8.3); Sodium 137 mmol/L (136-145)
[2022-04-06 13:56] LABS: CKMB 1.6 ng/mL (0-6.6)
[2022-04-06] MEDS ORDERED: Morphine 4 MG/ML VIAL ONE (14:33)
[2022-04-06] MEDS ORDERED: Aspirin 325 MG TAB ONE ×2 (14:33→14:34)
[2022-04-06] MEDS ORDERED: Furosemide 40 MG/4 ML VIAL ONE (14:57)
[2022-04-06] MEDS ORDERED: Enoxaparin Sodium 100 MG/ML SYRINGE ONE (14:57)
[2022-04-06] MEDS ORDERED: Nitroglycerin 2% Ointment 1 INCH/1 GM Packet ONE (16:02)
[2022-04-06 17:27] LABS: SARS-CoV-2 NAA Rapid Test Not Detected (NotDetected)
[2022-04-06 17:36] LABS: CKMB 1.7 ng/mL (0-6.6)
[2022-04-06] MEDS ORDERED: Dextrose 5% in Water 1,000 ML IV PRN (17:50)
[2022-04-06] MEDS ORDERED: Dextrose 50% Abboject 50 ML SYRINGE SLOW IVP PRN (17:50)
[2022-04-06] MEDS ORDERED: Acetaminophen 325 MG TAB PO PRN (17:50)
[2022-04-06] MEDS ORDERED: HumaLOG 300 UNITS/3 ML VIAL SC PRN ×2 (17:53)
[2022-04-06] MEDS ORDERED: Albuterol Sulfate 2.5 mg/3 ml Neb NEB PRN (17:53)
[2022-04-06] MEDS ORDERED: hydrALAZINE 20 MG/ML VIAL SLOW IVP PRN (18:02)
[2022-04-06] MEDS ORDERED: Carvedilol 25 MG TAB PO SCH (18:30)
[2022-04-06] MEDS ORDERED: hydrALAZINE 25 MG TAB PO SCH (18:30)
[2022-04-06] MEDS ORDERED: predniSONE 20 MG TAB PO SCH (18:30)
[2022-04-06] MEDS ORDERED: predniSONE 20 MG TAB ONE (18:33)
[2022-04-06] MEDS ORDERED: hydrALAZINE 25 MG TAB ONE (18:33)
[2022-04-06] MEDS: Mometasone/Formoterol 200/5 60 PUFF INH SCH (18:37)
[2022-04-06 20:56] LABS: CKMB 1.4 ng/mL (0-6.6)
[2022-04-06] MEDS: Atorvastatin Calcium 40 MG TAB PO SCH (21:54)
[2022-04-06] MEDS: Insulin Glargine 30 UNITS/0.3 ML VIAL SC SCH (21:54)
[2022-04-06] MEDS: Ipratropium Bromide 0.06% Nasal Inhaler 15ml EA NARE SCH (21:54)
[2022-04-06] MEDS: busPIRone HCl 10 MG TAB PO SCH (21:54)
[2022-04-06] MEDS: Montelukast Sodium 10 mg Tablet PO SCH (21:55)
[2022-04-06] MEDS: Sacubitril 49 MG/Valsartan 51 MG TABLET PO SCH (21:55)
[2022-04-06] MEDS: Varenicline Tartrate 0.5 MG TAB PO SCH (21:55)
[2022-04-06] MEDS: Nitroglycerin 2% Ointment 1 INCH/1 GM Packet TOP SCH (22:24)
[2022-04-07] MEDS ORDERED: Nitroglycerin 2% Ointment 1 INCH/1 GM Packet ONE (06:14)
[2022-04-07] MEDS: Nitroglycerin 2% Ointment 1 INCH/1 GM Packet TOP SCH ×3 (06:15→21:21)
[2022-04-07] MEDS: Mometasone/Formoterol 200/5 60 PUFF INH SCH ×2 (06:33→19:24)
[2022-04-07 07:12] LABS: #Lymphocytes 1.1 thou/uL (1.20-3.40); #Monocytes 0.4 thou/uL (0.11-0.59); %Eosinophils 0.1 % (0.0-10.0); %Lymphocytes 8.4 % (21.0-51.0); %Monocytes 2.9 % (0.0-10.0); %Neutrophils 88.7 % (42.0-75.0); Hemoglobin 15.4 g/dL (14.0-18.0); Mean Corpuscular HGB CONC 32.9 g/dL (32.0-36.0); Mean Corpuscular Hemoglobin 30.5 pg (27.0-31.0); Mean Corpuscular Volume 92.8 fl (78.0-98.0); Mean Platelet Volume 9.1 fL (7.4-10.4); Platelet Count 177 10x3/uL (130-400); RBC Distribution Width 11.7 % (11.5-14.5); Red Blood Cell (RBC) Count 5.05 mill/uL (4.70-6.10); White Blood Cell (WBC) Count 13.5 10x3/uL (4.8-10.8)
[2022-04-07 07:24] LABS: Anion Gap 13 mmol/L (10-20); BUN (Urea Nitrogen) 14 mg/dL (8.4-25.7); Calc. Creatinine Clearance 113 mL/min (70-130); Calcium 9.4 mg/dL (7.8-10.44); Carbon Dioxide 22 mmol/L (22-29); Chloride 103 mmol/L (98-107); Estimated GFR 84; Potassium 3.9 mmol/L (3.5-5.1); Sodium 134 mmol/L (136-145)
[2022-04-07 07:30] LABS: Glucose 422 mg/dL (70-105)
[2022-04-07] MEDS ORDERED: HumaLOG 300 UNITS/3 ML VIAL ONE (07:54)
[2022-04-07] MEDS: Carvedilol 25 MG TAB PO SCH ×2 (07:57→16:37)
[2022-04-07] MEDS: Spironolactone 25 MG TAB PO SCH (07:57)
[2022-04-07] MEDS ORDERED: predniSONE 20 MG TAB ONE (08:23)
[2022-04-07] MEDS ORDERED: Clopidogrel Bisulfate 75 MG TAB ONE (08:23)
[2022-04-07] MEDS ORDERED: Furosemide 40 MG/4 ML VIAL ONE (08:23)
[2022-04-07] MEDS ORDERED: Enoxaparin Sodium 100 MG/ML SYRINGE ONE (08:23)
[2022-04-07] MEDS ORDERED: Aspirin Chewable 81 MG TAB ONE (08:23)
[2022-04-07] MEDS: Aspirin Chewable 81 MG TAB PO SCH (08:27)
[2022-04-07] MEDS: DULoxetine 60 MG CAP PO SCH (08:28)
[2022-04-07] MEDS: busPIRone HCl 10 MG TAB PO SCH ×2 (08:28→21:06)
[2022-04-07] MEDS: Gabapentin 100 MG CAP PO SCH (08:29)
[2022-04-07] MEDS: Empagliflozin 25 MG TAB PO SCH (08:29)
[2022-04-07] MEDS: Finasteride 5 MG TAB PO SCH (08:29)
[2022-04-07] MEDS: hydrALAZINE 25 MG TAB PO SCH ×3 (08:31→21:07)
[2022-04-07] MEDS: Loratadine 10 MG TAB PO SCH (08:31)
[2022-04-07] MEDS: predniSONE 20 MG TAB PO SCH (08:32)
[2022-04-07] MEDS: Ipratropium Bromide 0.06% Nasal Inhaler 15ml EA NARE SCH ×2 (08:32→21:06)
[2022-04-07] MEDS: Sacubitril 49 MG/Valsartan 51 MG TABLET PO SCH ×2 (08:33→21:06)
[2022-04-07] MEDS: Tamsulosin HCl 0.4 MG CAP PO SCH (08:33)
[2022-04-07] MEDS: Varenicline Tartrate 0.5 MG TAB PO SCH ×2 (08:34→21:06)
[2022-04-07] MEDS ORDERED: Clopidogrel Bisulfate 75 MG TAB PO SCH (09:00)
[2022-04-07] MEDS ORDERED: Furosemide 40 MG/4 ML VIAL SLOW IVP SCH (09:00)
[2022-04-07] MEDS ORDERED: Enoxaparin Sodium 100 MG/ML SYRINGE SC SCH (09:00)
[2022-04-07] MEDS: Insulin Glargine 30 UNITS/0.3 ML VIAL SC SCH ×2 (09:28→21:07)
[2022-04-07] MEDS: NIFEdipine XL 30 MG TAB PO SCH (09:29)
[2022-04-07 10:09] VITALS: BMI 31.9
[2022-04-07] MEDS ORDERED: Non-Formulary Item 1 EACH (Liraglutide [Victoza 3-Pak] 1.8 MG) SC SCH (10:54)
[2022-04-07] MEDS: Atorvastatin Calcium 40 MG TAB PO SCH (21:05)
[2022-04-07] MEDS: Montelukast Sodium 10 mg Tablet PO SCH (21:06)
[2022-04-08 05:36] LABS: Anion Gap 17 mmol/L (10-20); BUN (Urea Nitrogen) 20 mg/dL (8.4-25.7); Calc. Creatinine Clearance 84 mL/min (70-130); Calcium 9.7 mg/dL (7.8-10.44); Carbon Dioxide 25 mmol/L (22-29); Chloride 103 mmol/L (98-107); Estimated GFR 59; Glucose 136 mg/dL (70-105); Potassium 3.4 mmol/L (3.5-5.1); Sodium 142 mmol/L (136-145)
[2022-04-08] MEDS: Nitroglycerin 2% Ointment 1 INCH/1 GM Packet TOP SCH ×3 (06:00→20:28)
[2022-04-08] MEDS ORDERED: glipiZIDE 5 MG TAB PO SCH (07:30)
[2022-04-08] MEDS ORDERED: Potassium Chloride 20 MEQ TAB PO SCH (08:15)
[2022-04-08] MEDS: Mometasone/Formoterol 200/5 60 PUFF INH SCH ×2 (08:20→18:30)
[2022-04-08] MEDS ORDERED: Non-Formulary Item 1 EACH (Liraglutide [Victoza 3-Pak] 0.6 MG/0.1 ML Pen.Injctr) SC SCH (09:00)
[2022-04-08] MEDS ORDERED: Prasugrel 10 MG TAB PO SCH (09:00)
[2022-04-08] MEDS ORDERED: Furosemide 20 MG TAB PO SCH (09:00)
[2022-04-08] MEDS ORDERED: Empagliflozin 10 MG TAB PO SCH (09:00)
[2022-04-08] MEDS: Carvedilol 25 MG TAB PO SCH (09:59)
[2022-04-08] MEDS: Spironolactone 25 MG TAB PO SCH (09:59)
[2022-04-08] MEDS: Empagliflozin 25 MG TAB PO SCH (10:00)
[2022-04-08] MEDS: Aspirin Chewable 81 MG TAB PO SCH (10:00)
[2022-04-08] MEDS: Finasteride 5 MG TAB PO SCH (10:00)
[2022-04-08] MEDS: DULoxetine 60 MG CAP PO SCH (10:00)
[2022-04-08] MEDS: busPIRone HCl 10 MG TAB PO SCH ×2 (10:00→20:28)
[2022-04-08] MEDS: Gabapentin 100 MG CAP PO SCH (10:01)
[2022-04-08] MEDS: hydrALAZINE 25 MG TAB PO SCH ×3 (10:01→20:28)
[2022-04-08] MEDS: Insulin Glargine 30 UNITS/0.3 ML VIAL SC SCH (10:02)
[2022-04-08] MEDS: NIFEdipine XL 30 MG TAB PO SCH (10:03)
[2022-04-08] MEDS: Ipratropium Bromide 0.06% Nasal Inhaler 15ml EA NARE SCH (10:03)
[2022-04-08] MEDS: Loratadine 10 MG TAB PO SCH (10:03)
[2022-04-08] MEDS: predniSONE 20 MG TAB PO SCH (10:04)
[2022-04-08] MEDS: Varenicline Tartrate 0.5 MG TAB PO SCH ×2 (10:04→20:28)
[2022-04-08] MEDS: Tamsulosin HCl 0.4 MG CAP PO SCH (10:04)
[2022-04-08] MEDS: Sacubitril 49 MG/Valsartan 51 MG TABLET PO SCH (10:04)
[2022-04-08 12:09] VITALS: TEMP 97.5
[2022-04-08] MEDS ORDERED: Iopamidol-370 76% 500 ML 1 ML ONE (13:02)
[2022-04-08 19:46] VITALS: BP 124/81
[2022-04-08] MEDS: Atorvastatin Calcium 40 MG TAB PO SCH (20:28)
[2022-04-08] MEDS: Montelukast Sodium 10 mg Tablet PO SCH (20:28)
== END 2022-04-08 22:33 | disposition short-term general hospital (02) | DRG 280 ==
LOC: ERS 12:12 → ERHOLD 15:58 → 2SW 04-07 09:39
PROVIDERS: ADMIT Family Medicine; ATTEND Internal Medicine
DX: I11.0 Hypertensive heart disease with heart failure (principal); I21.4 Non-ST elevation (NSTEMI) myocardial infarction; I50.23 Acute on chronic systolic (congestive) heart failure; J44.1 Chronic obstructive pulmonary disease with (acute) exacerbation; E78.00 Pure hypercholesterolemia, unspecified; I25.10 Atherosclerotic heart disease of native coronary artery without angina pectoris; F41.9 Anxiety disorder, unspecified; F32.A Depression, unspecified; Z20.822 Contact with and (suspected) exposure to COVID-19; E11.40 Type 2 diabetes mellitus with diabetic neuropathy, unspecified; E78.5 Hyperlipidemia, unspecified; M06.9 Rheumatoid arthritis, unspecified; N40.0 Benign prostatic hyperplasia without lower urinary tract symptoms; E11.65 Type 2 diabetes mellitus with hyperglycemia; I25.5 Ischemic cardiomyopathy; I16.0 Hypertensive urgency; Z96.651 Presence of right artificial knee joint; Z95.810 Presence of automatic (implantable) cardiac defibrillator; I25.2 Old myocardial infarction; Z79.4 Long term (current) use of insulin; Z79.84 Long term (current) use of oral hypoglycemic drugs; Z79.899 Other long term (current) drug therapy
CPT/HCPCS: 36415; 36416; 70450; 70496; 70498; 70551; 71045; 80048; 80053; 82553; 83690; 83880; 84484; 85025; 93005; 94640; 94664; 94760; 96372; 96374; 96375; J1650; J1815; J1940; J2270; J7512; J7620; Q9967; U0002

== ENCOUNTER 2022-06-29 11:24 | Outpatient (CLI) | payer MEDICARE, OTHER | END 2022-06-29 11:25 | disposition home or self-care (01) | LOC: SCSRAD 11:24 | PROVIDERS: ATTEND Family Medicine | DX: M79.642 Pain in left hand (principal); M54.2 Cervicalgia; M19.042 Primary osteoarthritis, left hand; M47.812 Spondylosis without myelopathy or radiculopathy, cervical region | CPT/HCPCS: 72052 ==

== ENCOUNTER 2022-07-20 06:01 | Day surgery (SDC) | payer OTHER, MEDICAID ==
[2022-07-16 09:45] VITALS: BMI 33.5
[2022-07-20] MEDS ORDERED: Famotidine/PF 20 mg/2ml Vial ONE (07:33)
[2022-07-20] MEDS ORDERED: ePHEDrine Sulfate 50 MG/10 ML VIAL ONE (08:01)
[2022-07-20] MEDS ORDERED: PROPOFOL 200 MG/20 ML VIAL ONE (08:01)
[2022-07-20] MEDS ORDERED: Phenylephrine 10 MG/ML VIAL ONE (08:01)
[2022-07-20] MEDS ORDERED: Lidocaine 1% PF 5 ML VIAL ONE (08:01)
== END 2022-07-20 09:13 | disposition home or self-care (01) ==
LOC: SDC 06:01
PROVIDERS: ATTEND Internal Medicine
PROC: 0DBN8ZX Excision of Sigmoid Colon, Via Natural or Artificial Opening Endoscopic, Diagnostic (ICD-10-PCS; principal; 2022-07-20)
PROC: 0DBL8ZX Excision of Transverse Colon, Via Natural or Artificial Opening Endoscopic, Diagnostic (ICD-10-PCS; 2022-07-20)
DX: D12.5 Benign neoplasm of sigmoid colon (principal); D12.3 Benign neoplasm of transverse colon; K57.30 Diverticulosis of large intestine without perforation or abscess without bleeding; K64.8 Other hemorrhoids; K91.1 Postgastric surgery syndromes; I50.9 Heart failure, unspecified; Z80.0 Family history of malignant neoplasm of digestive organs; Z95.5 Presence of coronary angioplasty implant and graft; Z95.810 Presence of automatic (implantable) cardiac defibrillator; Z95.1 Presence of aortocoronary bypass graft; Z79.01 Long term (current) use of anticoagulants; Z79.82 Long term (current) use of aspirin; Z79.4 Long term (current) use of insulin; Z79.84 Long term (current) use of oral hypoglycemic drugs; Z79.85 Long-term (current) use of injectable non-insulin antidiabetic drugs; Z79.899 Other long term (current) drug therapy
CPT/HCPCS: 36416; 88305; J2370; J2704; S0028

== ENCOUNTER 2022-08-03 11:07 | Outpatient (CLI) | payer OTHER | END 2022-08-03 11:08 | disposition home or self-care (01) | LOC: MRI 11:07 | PROVIDERS: ATTEND Specialist | DX: M50.10 Cervical disc disorder with radiculopathy, unspecified cervical region (principal) | CPT/HCPCS: 71045; 72141 ==

== ENCOUNTER 2022-08-10 13:27 | Outpatient (CLI) | payer OTHER | END 2022-08-10 13:28 | disposition home or self-care (01) | LOC: BICCT 13:27 | PROVIDERS: ATTEND Student in an Organized Health Care Education/Training Program | DX: Z12.2 Encounter for screening for malignant neoplasm of respiratory organs (principal); Z87.891 Personal history of nicotine dependence | CPT/HCPCS: 71271 ==

== ENCOUNTER 2022-11-12 15:28 | Observation (INO) | payer OTHER ==
[2022-11-12 16:29] LABS: #Basophils 0.1 thou/uL (0.0-0.2); #Eosinphils 0.1 thou/uL (0.0-0.7); #Monocytes 0.7 thou/uL (0.11-0.59); #Neutrophils 6.2 thou/uL (1.40-6.50); %Basophils 0.7 % (0.0-1.0); %Eosinophils 1.5 % (0.0-10.0); %Lymphocytes 25.4 % (21.0-51.0); %Monocytes 6.9 % (0.0-10.0); %Neutrophils 64.9 % (42.0-75.0); Hematocrit 42.6 % (42.0-52.0); Hemoglobin 14.8 g/dL (14.0-18.0); Mean Corpuscular HGB CONC 34.7 g/dL (32.0-36.0); Mean Corpuscular Hemoglobin 31.4 pg (27.0-31.0); Mean Corpuscular Volume 90.4 fl (78.0-98.0); Platelet Count 223 10x3/uL (130-400); RBC Distribution Width 12.4 % (11.5-14.5); Red Blood Cell (RBC) Count 4.71 mill/uL (4.70-6.10); White Blood Cell (WBC) Count 9.5 10x3/uL (4.8-10.8)
[2022-11-12 16:53] LABS: ALT (SGPT) 26 U/L (8-55); AST (SGOT) 15 U/L (5-34); Albumin 4.6 g/dL (3.5-5.0); Alkaline Phosphatase 85 U/L (40-110); Anion Gap 15 mmol/L (10-20); BUN (Urea Nitrogen) 25 mg/dL (8.4-25.7); Bilirubin, Total 0.3 mg/dL (0.2-1.2); Calc. Creatinine Clearance 0 mL/min (70-130); Calcium 10.1 mg/dL (7.8-10.44); Carbon Dioxide 22 mmol/L (22-29); Chloride 103 mmol/L (98-107); Estimated GFR 46; Glucose 300 mg/dL (70-105); Potassium 4.4 mmol/L (3.5-5.1); Protein, Total 7.6 g/dL (6.0-8.3); Sodium 136 mmol/L (136-145)
[2022-11-12 19:03] LABS: Bacteria/HPF None Seen HPF (None Seen); Bilirubin Negative (Negative); Blood, Urine Negative (Negative); CAUTI Indications for Culture Dysuria,urgency,freq; Clarity Clear (Clear); Glucose, Urine (Dipstick) Greater than 1000 mg/dL (Negative); Ketone, Urine Negative (Negative); Leukocyte Negative Leu/uL (Negative); Nitrite Negative (Negative); Protein, Urine (Dipstick) Negative (Neg-Trace); RBC/HPF 0-3 HPF (0-3); Specific Gravity, Urine 1.023 (1.002-1.036); Squamous Epithelial 0-3 HPF (0-3); Urobilinogen Normal mg/dL (Less than 2); WBC/HPF None Seen HPF (0-3)
[2022-11-12 19:05] LABS: Urine Culture Reflex No No
[2022-11-12 19:06] LABS: Amphetamine Not Detected (NotDetected); Barbiturates Screen Not Detected (NotDetected); Benzodiazepine Screen Not Detected (NotDetected); Cocaine Metabolite Screen Not Detected (NotDetected); Methadone Not Detected (NotDetected); Methamphetamine Not Detected (NotDetected); Opiate Screen Not Detected (NotDetected); Oxycodone Screen Not Detected (NotDetected); Phencyclidine (PCP) Not Detected (NotDetected); THC/Cannabinoid Screen Not Detected (NotDetected); Tricyclic Screen Not Detected (NotDetected)
[2022-11-12 19:10] LABS: Acetaminophen Less than 10 mcg/mL (10.0-30.0); Alcohol Less than 10.0 mg/dL (Less than 10); Salicylate Less than 8.0 mg/dL (15.0-30.0)
[2022-11-12] MEDS ORDERED: Ondansetron ODT 4 MG TAB SL PRN (22:00)
[2022-11-12] MEDS ORDERED: Acetaminophen 325 MG TAB PO PRN (22:00)
[2022-11-12] MEDS ORDERED: Ondansetron PF 4 MG/2 ML Vial IVP PRN (22:00)
[2022-11-12 22:11] VITALS: BMI 33.0
[2022-11-12] MEDS ORDERED: Senokot S 8.6-50 MG TAB PO PRN (22:58)
[2022-11-12] MEDS ORDERED: Calcium Carbonate 500 MG ChewTAB PO PRN (22:58)
[2022-11-12] MEDS ORDERED: Dextrose 5% in Water 1,000 ML IV PRN (22:59)
[2022-11-12] MEDS ORDERED: Dextrose 50% Abboject 50 ML SYRINGE SLOW IVP PRN (22:59)
[2022-11-12] MEDS ORDERED: HumaLOG 300 UNITS/3 ML VIAL SC PRN ×2 (22:59)
[2022-11-12] MEDS ORDERED: Glucagon 1 MG/ML KIT IM PRN (22:59)
[2022-11-13 01:24] LABS: Troponin I Less than 0.010 ng/mL (< 0.028)
[2022-11-13 05:57] LABS: #Basophils 0.1 thou/uL (0.0-0.2); #Eosinphils 0.1 thou/uL (0.0-0.7); #Monocytes 0.7 thou/uL (0.11-0.59); #Neutrophils 4.5 thou/uL (1.40-6.50); %Eosinophils 1.7 % (0.0-10.0); %Monocytes 8.8 % (0.0-10.0); %Neutrophils 54.8 % (42.0-75.0); Hemoglobin 14.8 g/dL (14.0-18.0); Mean Corpuscular HGB CONC 34.4 g/dL (32.0-36.0); Mean Corpuscular Hemoglobin 31.4 pg (27.0-31.0); Mean Corpuscular Volume 91.3 fl (78.0-98.0); Mean Platelet Volume 9.7 fL (7.4-10.4); Platelet Count 198 10x3/uL (130-400); RBC Distribution Width 12.6 % (11.5-14.5); Red Blood Cell (RBC) Count 4.71 mill/uL (4.70-6.10); White Blood Cell (WBC) Count 8.2 10x3/uL (4.8-10.8)
[2022-11-13 06:21] LABS: Anion Gap 13 mmol/L (10-20); BUN (Urea Nitrogen) 22 mg/dL (8.4-25.7); Calc. Creatinine Clearance 96 mL/min (70-130); Calcium 9.9 mg/dL (7.8-10.44); Carbon Dioxide 23 mmol/L (22-29); Chloride 105 mmol/L (98-107); Estimated GFR 67; Glucose 170 mg/dL (70-105); Sodium 137 mmol/L (136-145)
[2022-11-13] MEDS ORDERED: Ezetimibe 10 MG TAB PO SCH (09:00)
[2022-11-13] MEDS ORDERED: Gabapentin 300 MG CAP PO SCH (09:00)
[2022-11-13] MEDS ORDERED: Spironolactone 25 MG TAB PO SCH (09:00)
[2022-11-13] MEDS ORDERED: Bupropion 150 MG SR TAB PO SCH (09:00)
[2022-11-13] MEDS ORDERED: Aspirin 81 mg Enteric Coated Tablet PO SCH (09:00)
[2022-11-13] MEDS ORDERED: DULoxetine 60 MG CAP PO SCH (09:00)
[2022-11-13] MEDS ORDERED: Sacubitril 49 MG/Valsartan 51 MG TABLET PO SCH (09:00)
[2022-11-13] MEDS ORDERED: Carvedilol 25 MG TAB PO SCH (09:00)
[2022-11-13] MEDS ORDERED: Furosemide 20 MG TAB PO SCH (09:00)
[2022-11-13] MEDS ORDERED: Montelukast Sodium 10 mg Tablet PO SCH (09:00)
[2022-11-13] MEDS ORDERED: Finasteride 5 MG TAB PO SCH (09:00)
[2022-11-13] MEDS ORDERED: Apixaban 5 MG TAB PO SCH (09:00)
[2022-11-13] MEDS ORDERED: Loratadine 10 MG TAB PO SCH (09:00)
[2022-11-13] MEDS ORDERED: Tamsulosin HCl 0.4 MG CAP PO SCH (09:00)
[2022-11-13] MEDS ORDERED: busPIRone HCl 10 MG TAB PO SCH (09:00)
[2022-11-13] MEDS ORDERED: Empagliflozin 25 MG TAB PO SCH (09:00)
[2022-11-13] MEDS ORDERED: Heparin 10,000 UNITS/ 10 ML VIAL ONE (11:21)
[2022-11-13] MEDS ORDERED: Regadenoson 0.4 MG/5 ML SYRINGE ONE (11:24)
[2022-11-13 16:06] VITALS: TEMP 97.9
[2022-11-13 16:11] VITALS: BP 165/94
== END 2022-11-13 17:56 | disposition home or self-care (01) ==
LOC: ERS 15:28 → 2SW 21:55
PROVIDERS: ADMIT Student in an Organized Health Care Education/Training Program; ATTEND Hospitalist
DX: E11.65 Type 2 diabetes mellitus with hyperglycemia (principal); I08.1 Rheumatic disorders of both mitral and tricuspid valves; I11.0 Hypertensive heart disease with heart failure; I50.22 Chronic systolic (congestive) heart failure; I25.10 Atherosclerotic heart disease of native coronary artery without angina pectoris; I73.9 Peripheral vascular disease, unspecified; I25.2 Old myocardial infarction; J44.9 Chronic obstructive pulmonary disease, unspecified; F17.200 Nicotine dependence, unspecified, uncomplicated; K21.9 Gastro-esophageal reflux disease without esophagitis; N40.0 Benign prostatic hyperplasia without lower urinary tract symptoms; F41.8 Other specified anxiety disorders; Z79.01 Long term (current) use of anticoagulants; Z79.84 Long term (current) use of oral hypoglycemic drugs; Z79.4 Long term (current) use of insulin; Z79.82 Long term (current) use of aspirin; Z79.899 Other long term (current) drug therapy; Z95.5 Presence of coronary angioplasty implant and graft; Z86.73 Personal history of transient ischemic attack (TIA), and cerebral infarction without residual deficits
CPT/HCPCS: 70450; 71045; 78452; 80048; 80053; 80306; 80307; 81001; 82962 ×2; 83880; 84484 ×3; 85025 ×2; 93005; 93017; 93306; A9500; G0378 ×3; 36415; 36416; J1644; J2785

== ENCOUNTER 2023-02-16 11:36 | Emergency (ER) | payer OTHER ==
[2023-02-16] MEDS ORDERED: traMADol HCl 50 MG TAB ONE (12:54)
== END 2023-02-16 14:23 | disposition home or self-care (01) ==
LOC: ERS 11:36
DX: N20.0 Calculus of kidney (principal); E11.9 Type 2 diabetes mellitus without complications; E78.00 Pure hypercholesterolemia, unspecified; I11.0 Hypertensive heart disease with heart failure; I50.9 Heart failure, unspecified; Z87.891 Personal history of nicotine dependence; Z79.4 Long term (current) use of insulin; Z79.899 Other long term (current) drug therapy; Z79.82 Long term (current) use of aspirin; Z79.01 Long term (current) use of anticoagulants
CPT/HCPCS: 74176

== ENCOUNTER 2023-09-27 11:59 | Inpatient (IN) | payer MEDICAID, MEDICARE, OTHER, SELFPAY ==
[~2023-09-27 11:59] MED LIST: Iopamidol-370 76% 500 ML MDV (1 ML CHARGE) ONE
[2023-09-27] MEDS ORDERED: Diazepam 10 MG/2 ML SYRINGE ONE (13:00)
[2023-09-27 13:14] LABS: #Basophils 0.04 10x3/uL (0.0-0.2); %Basophils 0.4 % (0.0-1.0); %Eosinophils 1.6 % (0.0-10.0); %Lymphocytes 19.6 % (21.0-51.0); %Monocytes 5.3 % (0.0-10.0); %Neutrophils 72.9 % (42.0-75.0); Hematocrit 40.3 % (42.0-52.0); Hemoglobin 13.7 g/dL (14.0-18.0); Mean Corpuscular Hemoglobin 30.6 pg (27.0-31.0); Platelet Count 206 10x3/uL (130-400); RBC Distribution Width 13.2 % (11.5-14.5); Red Blood Cell (RBC) Count 4.48 mill/uL (4.70-6.10)
[2023-09-27 13:41] LABS: Troponin I 0.024 ng/mL (< 0.028)
[2023-09-27 14:24] LABS: ALT (SGPT) 10 U/L (8-55); AST (SGOT) 14 U/L (5-34); Albumin 3.9 g/dL (3.5-5.0); Alkaline Phosphatase 80 U/L (40-110); Anion Gap 17 mmol/L (10-20); BUN (Urea Nitrogen) 11 mg/dL (8.4-25.7); Bilirubin, Total 0.6 mg/dL (0.2-1.2); Calc. Creatinine Clearance 0 mL/min (70-130); Calcium 9.8 mg/dL (7.8-10.44); Carbon Dioxide 18 mmol/L (22-29); Chloride 109 mmol/L (98-107); Estimated GFR 78; Globulin 3.1 g/dL (2.4-3.5); Glucose 179 mg/dL (70-105); Potassium 3.9 mmol/L (3.5-5.1); Sodium 140 mmol/L (136-145)
[2023-09-27] MEDS ORDERED: Aspirin Chewable 81 MG TAB ONE (16:37)
[2023-09-27] MEDS ORDERED: Furosemide 20 MG (2 mL) VIAL ONE (16:37)
[2023-09-27] MEDS ORDERED: Acetaminophen 325 MG TAB PO PRN (16:57)
[2023-09-27] MEDS ORDERED: Ondansetron PF 4 MG/2 ML Vial IVP PRN (16:57)
[2023-09-27] MEDS ORDERED: Lidocaine 4% Patch TD SCH (17:15)
[2023-09-27] MEDS: Lidocaine 4% Patch TD SCH (20:00)
[2023-09-27] MEDS: Gabapentin 300 MG CAP PO SCH (21:58)
[2023-09-27] MEDS: Famotidine 20 MG TAB PO SCH (21:59)
[2023-09-27 23:51] LABS: Troponin I 0.017 ng/mL (< 0.028)
[2023-09-28 01:55] VITALS: BMI 27.5
[2023-09-28 04:01] LABS: #Basophils 0.07 10x3/uL (0.0-0.2); %Basophils 0.8 % (0.0-1.0); %Eosinophils 2.5 % (0.0-10.0); %Monocytes 7.1 % (0.0-10.0); %Neutrophils 60.4 % (42.0-75.0); Hematocrit 43.1 % (42.0-52.0); Hemoglobin 14.5 g/dL (14.0-18.0); Mean Corpuscular HGB CONC 33.6 g/dL (32.0-36.0); Mean Corpuscular Hemoglobin 29.6 pg (27.0-31.0); Platelet Count 223 10x3/uL (130-400); RBC Distribution Width 13.2 % (11.5-14.5)
[2023-09-28 05:20] LABS: Anion Gap 13 mmol/L (10-20); BUN (Urea Nitrogen) 12 mg/dL (8.4-25.7); Calc. Creatinine Clearance 87 mL/min (70-130); Calcium 9.7 mg/dL (7.8-10.44); Carbon Dioxide 21 mmol/L (22-29); Chloride 110 mmol/L (98-107); Estimated GFR 75; Glucose 117 mg/dL (70-105); Potassium 3.6 mmol/L (3.5-5.1); Sodium 140 mmol/L (136-145)
[2023-09-28 05:25] LABS: Troponin I 0.018 ng/mL (< 0.028)
[2023-09-28] MEDS: Furosemide 40 MG (4 mL) VIAL SLOW IVP SCH (05:37)
[2023-09-28] MEDS: Transdermal Patch Removal TOP SCH (05:37)
[2023-09-28] MEDS ORDERED: Ipratropium Bromide 2.5 ml Neb NEB PRN (06:56)
[2023-09-28] MEDS ORDERED: Insulin Glargine 30 UNITS/0.3 ML VIAL SC PRN (06:56)
[2023-09-28] MEDS ORDERED: Aspirin 81 mg Enteric Coated Tablet PO SCH (09:00)
[2023-09-28] MEDS ORDERED: Non-Formulary Item 1 EACH (Omeprazole [Omeprazole] 20 MG Tablet.Dr) PO SCH (09:00)
[2023-09-28] MEDS ORDERED: Tamsulosin HCl 0.4 MG CAP PO SCH (09:00)
[2023-09-28] MEDS ORDERED: Lidocaine 4% Patch TD SCH (09:00)
[2023-09-28] MEDS ORDERED: Non-Formulary Item 1 EACH (Budesonide-Formoterol [Symbicort 160-4.5] 160 MG/4.5 MG Aer) INH SCH (09:00)
[2023-09-28] MEDS ORDERED: Gabapentin 100 MG CAP PO SCH (09:00)
[2023-09-28] MEDS: Ezetimibe 10 MG TAB PO SCH (09:35)
[2023-09-28] MEDS: DULoxetine 60 MG CAP PO SCH (09:35)
[2023-09-28] MEDS: Pantoprazole DR 40 MG TAB PO SCH (09:35)
[2023-09-28] MEDS: Ranolazine ER 500 MG TAB PO SCH (09:35)
[2023-09-28] MEDS: Carvedilol 25 MG TAB PO SCH (09:36)
[2023-09-28] MEDS: Montelukast Sodium 10 mg Tablet PO SCH (09:36)
[2023-09-28] MEDS: Finasteride 5 MG TAB PO SCH (09:36)
[2023-09-28] MEDS: Gabapentin 300 MG CAP PO SCH (09:36)
[2023-09-28] MEDS: Isosorbide Mononitrate 60 MG ER.TAB PO SCH (09:36)
[2023-09-28] MEDS: Bupropion 150 MG SR.TAB PO SCH (09:36)
[2023-09-28] MEDS: Sacubitril 49 MG/Valsartan 51 MG TABLET PO SCH (09:37)
[2023-09-28] MEDS: busPIRone HCl 10 MG TAB PO SCH (09:37)
[2023-09-28] MEDS: Empagliflozin 25 MG TAB PO SCH (09:37)
[2023-09-28] MEDS: Aspirin 81 mg Enteric Coated Tablet PO SCH (09:37)
[2023-09-28] MEDS: Apixaban 5 MG TAB PO SCH (09:38)
[2023-09-28] MEDS: Tamsulosin HCl 0.4 MG CAP PO SCH (09:38)
[2023-09-28] MEDS: HYDROcodone/Acetaminophen 5/325 mg Tablet PO PRN (09:39)
[2023-09-28] MEDS: Mometasone 200 MCG/Formoterol 5 MCG 120 PUFF INHALER INH SCH (19:40)
[2023-09-28] MEDS: Atorvastatin Calcium 40 MG TAB PO SCH (20:23)
[2023-09-28] MEDS ORDERED: Non-Formulary Item 1 EACH (Atorvastatin Calcium [Atorvastatin Calcium] 80 MG Tablet) PO SCH (21:00)
[2023-09-29 04:24] LABS: #Basophils 0.09 10x3/uL (0.0-0.2); %Eosinophils 2.4 % (0.0-10.0); %Lymphocytes 29.5 % (21.0-51.0); %Monocytes 6.4 % (0.0-10.0); %Neutrophils 60.5 % (42.0-75.0); Hematocrit 41.1 % (42.0-52.0); Hemoglobin 13.9 g/dL (14.0-18.0); Mean Corpuscular HGB CONC 33.8 g/dL (32.0-36.0); Mean Corpuscular Hemoglobin 29.8 pg (27.0-31.0); Mean Corpuscular Volume 88.2 fL (78.0-98.0); Platelet Count 224 10x3/uL (130-400); RBC Distribution Width 13.4 % (11.5-14.5); Red Blood Cell (RBC) Count 4.66 mill/uL (4.70-6.10)
[2023-09-29 05:00] LABS: Anion Gap 18 mmol/L (10-20); BUN (Urea Nitrogen) 19 mg/dL (8.4-25.7); Calc. Creatinine Clearance 70 mL/min (70-130); Calcium 9.8 mg/dL (7.8-10.44); Carbon Dioxide 20 mmol/L (22-29); Chloride 106 mmol/L (98-107); Estimated GFR 58; Glucose 149 mg/dL (70-105); Potassium 3.5 mmol/L (3.5-5.1); Sodium 140 mmol/L (136-145)
[2023-09-29 08:25] VITALS: BP 107/68; TEMP 97.4
== END 2023-09-29 11:54 | disposition home or self-care (01) | DRG 291 ==
LOC: ERS 11:59 → ERHOLD 16:55 → 2SW 21:25 → OBSVTOIN 09-28 13:44
PROVIDERS: ADMIT Family Medicine; ATTEND Internal Medicine
DX: I11.0 Hypertensive heart disease with heart failure (principal); I50.23 Acute on chronic systolic (congestive) heart failure; E11.9 Type 2 diabetes mellitus without complications; I25.10 Atherosclerotic heart disease of native coronary artery without angina pectoris; J44.9 Chronic obstructive pulmonary disease, unspecified; I25.5 Ischemic cardiomyopathy; E78.00 Pure hypercholesterolemia, unspecified; M06.9 Rheumatoid arthritis, unspecified; F32.A Depression, unspecified; F41.9 Anxiety disorder, unspecified; Z96.651 Presence of right artificial knee joint; Z86.73 Personal history of transient ischemic attack (TIA), and cerebral infarction without residual deficits; I25.2 Old myocardial infarction; Z95.1 Presence of aortocoronary bypass graft; Z98.42 Cataract extraction status, left eye; Z98.41 Cataract extraction status, right eye; Z82.49 Family history of ischemic heart disease and other diseases of the circulatory system; Z87.891 Personal history of nicotine dependence; Z79.82 Long term (current) use of aspirin; Z79.02 Long term (current) use of antithrombotics/antiplatelets; Z79.01 Long term (current) use of anticoagulants; Z95.5 Presence of coronary angioplasty implant and graft; Z79.4 Long term (current) use of insulin; Z95.810 Presence of automatic (implantable) cardiac defibrillator
CPT/HCPCS: 36415; 36416; 71045; 71275; 74174; 80048; 80053; 83880; 84484; 85025; 93005; 93798; 96374; 96375; 96376; G0378; J1940; J3360; Q9967

== ENCOUNTER 2023-11-08 11:48 | Outpatient (CLI) | payer MEDICARE | END 2023-11-08 11:49 | disposition home or self-care (01) | LOC: SCSRAD 11:48 | PROVIDERS: ATTEND Nurse Practitioner Family | DX: J44.9 Chronic obstructive pulmonary disease, unspecified (principal) | CPT/HCPCS: 71046 ==

== ENCOUNTER 2023-12-26 17:05 | Inpatient (IN) | payer MEDICARE ==
[2023-12-26 18:01] LABS: #Basophils 0.07 10x3/uL (0.0-0.2); %Basophils 0.8 % (0.0-1.0); %Eosinophils 0.9 % (0.0-10.0); %Lymphocytes 19.1 % (21.0-51.0); %Monocytes 6.1 % (0.0-10.0); %Neutrophils 72.7 % (42.0-75.0); Hematocrit 41.3 % (42.0-52.0); Hemoglobin 13.7 g/dL (14.0-18.0); Mean Corpuscular HGB CONC 33.2 g/dL (32.0-36.0); Mean Corpuscular Hemoglobin 30.4 pg (27.0-31.0); Mean Corpuscular Volume 91.8 fL (78.0-98.0); Mean Platelet Volume 10.5 fL (7.4-10.4); Platelet Count 224 10x3/uL (130-400)
[2023-12-26 18:22] LABS: Troponin I 0.267 ng/mL (< 0.028)
[2023-12-26 18:25] LABS: ALT (SGPT) 27 U/L (8-55); AST (SGOT) 22 U/L (5-34); Albumin 3.8 g/dL (3.5-5.0); Alkaline Phosphatase 94 U/L (40-110); Anion Gap 15 mmol/L (10-20); BUN (Urea Nitrogen) 16 mg/dL (8.4-25.7); Bilirubin, Total 0.6 mg/dL (0.2-1.2); Calc. Creatinine Clearance 0 mL/min (70-130); Calcium 9.4 mg/dL (7.8-10.44); Carbon Dioxide 21 mmol/L (22-29); Chloride 109 mmol/L (98-107); Estimated GFR 63; Glucose 160 mg/dL (70-105); Lipase 25 U/L (8-78); Potassium 3.6 mmol/L (3.5-5.1); Protein, Total 6.8 g/dL (6.0-8.3); Sodium 141 mmol/L (136-145)
[2023-12-26] MEDS ORDERED: Sodium Chloride 0.9% 250 ML 250 ML ONE (18:53)
[2023-12-26] MEDS ORDERED: Azithromycin 500 MG VIAL ONE (18:53)
[2023-12-26] MEDS ORDERED: cefTRIAXone (ROCEPHIN) 1 GM VIAL ONE (18:53)
[2023-12-26] MEDS ORDERED: Dexamethasone 10 MG/ML VIAL ONE (18:53)
[2023-12-26] MEDS ORDERED: Sodium Chloride 0.9% 100 ML ONE (18:53)
[2023-12-26] MEDS ORDERED: Aspirin Chewable 81 MG TAB ONE (19:07)
[2023-12-26] MEDS ORDERED: Ipratropium/Albuterol 3 ML NEB ONE ×2 (19:12→19:13)
[2023-12-26] MEDS ORDERED: Nitroglycerin 0.4 MG TAB (25 Tab Bottle) SL PRN (19:15)
[2023-12-26] MEDS ORDERED: Acetaminophen 650 MG Suppository PR PRN (19:15)
[2023-12-26] MEDS ORDERED: Senokot S 8.6-50 MG TAB PO PRN (19:15)
[2023-12-26] MEDS ORDERED: Bisacodyl 5 MG TAB PO PRN (19:15)
[2023-12-26] MEDS ORDERED: Acetaminophen 325 MG TAB PO PRN (19:15)
[2023-12-26] MEDS ORDERED: Ipratropium Bromide 2.5 ml Neb NEB PRN (19:37)
[2023-12-26] MEDS: Ranolazine ER 500 MG TAB PO SCH (20:51)
[2023-12-26] MEDS: Famotidine 20 MG TAB PO SCH (20:52)
[2023-12-26] MEDS: Sacubitril 49 MG/Valsartan 51 MG TABLET PO SCH (20:52)
[2023-12-26] MEDS: Atorvastatin Calcium 40 MG TAB PO SCH (20:52)
[2023-12-26] MEDS: Carvedilol 25 MG TAB PO SCH (20:52)
[2023-12-26] MEDS: Gabapentin 300 MG CAP PO SCH (20:52)
[2023-12-26] MEDS: Bupropion 150 MG SR.TAB PO SCH (20:52)
[2023-12-26] MEDS: busPIRone HCl 10 MG TAB PO SCH (20:52)
[2023-12-26] MEDS: Nitroglycerin 2% Ointment 1 INCH/1 GM Packet TOP SCH (20:53)
[2023-12-26] MEDS: Furosemide 20 MG (2 mL) VIAL SLOW IVP SCH (20:53)
[2023-12-26 20:55] LABS: Hematocrit 39.8 % (42.0-52.0); Hemoglobin 13.5 g/dL (14.0-18.0); Platelet Count 200 10x3/uL (130-400)
[2023-12-26] MEDS: Famotidine/PF 20 mg/2ml Vial SLOW IVP SCH (20:55)
[2023-12-26] MEDS ORDERED: Apixaban 5 MG TAB PO SCH (21:00)
[2023-12-26 21:15] LABS: Magnesium 1.8 mg/dL (1.6-2.6)
[2023-12-26 21:31] LABS: Troponin I 0.249 ng/mL (< 0.028)
[2023-12-26] MEDS ORDERED: Magnesium Sulfate 2 GM in Sodium Chloride 0.9% 250 ML 250 ML IVPB SCH (21:45)
[2023-12-26 21:50] VITALS: BMI 29.6
[2023-12-26] MEDS: Magnesium 2 GM/50 ML(in water) 2 GM in Premix 1 BAG IVPB SCH (21:52)
[2023-12-26] MEDS: Heparin 10,000 UNITS/ 10 ML VIAL SLOW IVP SCH (23:24)
[2023-12-26] MEDS: Heparin 25,000 units/D5W 500 ML IVPB SCH (23:28)
[2023-12-26 23:35] LABS: Troponin I 0.214 ng/mL (< 0.028)
[2023-12-27 05:35] LABS: #Basophils Less than 0.03 10x3/uL (0.0-0.2); #Eosinphils Less than 0.03 10x3/uL (0.0-0.7); %Basophils 0.2 % (0.0-1.0); %Lymphocytes 10.7 % (21.0-51.0); %Monocytes 1.4 % (0.0-10.0); %Neutrophils 87.2 % (42.0-75.0); Hematocrit 43.4 % (42.0-52.0); Hemoglobin 14.6 g/dL (14.0-18.0); Mean Corpuscular HGB CONC 33.6 g/dL (32.0-36.0); Mean Corpuscular Hemoglobin 30.8 pg (27.0-31.0); Mean Corpuscular Volume 91.6 fL (78.0-98.0); Mean Platelet Volume 10.6 fL (7.4-10.4); Platelet Count 223 10x3/uL (130-400); RBC Distribution Width 13.9 % (11.5-14.5); Red Blood Cell (RBC) Count 4.74 mill/uL (4.70-6.10)
[2023-12-27 05:51] LABS: Anion Gap 16 mmol/L (10-20); BUN (Urea Nitrogen) 16 mg/dL (8.4-25.7); Calc. Creatinine Clearance 101 mL/min (70-130); Calcium 9.3 mg/dL (7.8-10.44); Carbon Dioxide 16 mmol/L (22-29); Cardiac Risk 5.4 (Less than 4.5); Chloride 111 mmol/L (98-107); Cholesterol 179 mg/dl (< 200 Desired); Estimated GFR 83; Glucose 297 mg/dL (70-105); HDL Cholesterol 33 mg/dL (>60 Neg Risk); LDL Cholesterol, Calculated 133 mg/dL; Potassium 4.1 mmol/L (3.5-5.1); Sodium 139 mmol/L (136-145); Triglycerides 63 mg/dL (Less than 150)
[2023-12-27 05:55] LABS: Troponin I 0.127 ng/mL (< 0.028)
[2023-12-27] MEDS: Insulin Glargine 30 UNITS/0.3 ML VIAL SC PRN (06:58)
[2023-12-27 09:15] LABS: Lactic Acid 2.26 mmol/L (0.5-2.2)
[2023-12-27 09:17] LABS: Anion Gap 17 mmol/L (10-20); BUN (Urea Nitrogen) 18 mg/dL (8.4-25.7); Calc. Creatinine Clearance 102 mL/min (70-130); Calcium 9.3 mg/dL (7.8-10.44); Carbon Dioxide 19 mmol/L (22-29); Chloride 107 mmol/L (98-107); Estimated GFR 84; Glucose 279 mg/dL (70-105); Potassium 4.3 mmol/L (3.5-5.1); Sodium 139 mmol/L (136-145)
[2023-12-27] MEDS: Ezetimibe 10 MG TAB PO SCH (10:10)
[2023-12-27] MEDS: DULoxetine 60 MG CAP PO SCH (10:10)
[2023-12-27] MEDS: Loratadine 10 MG TAB PO SCH (10:11)
[2023-12-27] MEDS: Montelukast Sodium 10 mg Tablet PO SCH (10:12)
[2023-12-27] MEDS: Isosorbide Mononitrate 60 MG ER.TAB PO SCH (10:13)
[2023-12-27] MEDS: Finasteride 5 MG TAB PO SCH (10:14)
[2023-12-27] MEDS: Furosemide 20 MG TAB PO SCH (10:14)
[2023-12-27] MEDS: Aspirin 81 mg Enteric Coated Tablet PO SCH (10:15)
[2023-12-27] MEDS: Tamsulosin HCl 0.4 MG CAP PO SCH (10:16)
[2023-12-27] MEDS: Empagliflozin 25 MG TAB PO SCH (10:16)
[2023-12-27 10:58] LABS: Hemoglobin A1c 6.5 % (4.0-6.0)
[2023-12-27] MEDS: Insulin Glargine 30 UNITS/0.3 ML VIAL SC SCH ×2 (12:35→22:09)
[2023-12-27] MEDS ORDERED: Dextrose 50% Abboject 50 ML SYRINGE SLOW IVP PRN (12:48)
[2023-12-27] MEDS ORDERED: Dextrose 5% in Water 1,000 ML IV PRN (12:48)
[2023-12-27] MEDS ORDERED: Glucagon 1 MG/ML KIT IM PRN (12:48)
[2023-12-27] MEDS: Insulin Lispro 100 UNIT/ML 10 ML VIAL SC PRN (13:24)
[2023-12-27] MEDS: Furosemide 40 MG (4 mL) VIAL SLOW IVP SCH (15:29)
[2023-12-27] MEDS ORDERED: Enoxaparin 100 MG (1 mL) SYRINGE SC SCH (21:00)
[2023-12-27] MEDS: Apixaban 5 MG TAB PO SCH (22:07)
[2023-12-28] MEDS ORDERED: Spironolactone 25 MG TAB PO SCH (08:00)
[2023-12-28 08:15] VITALS: BP 122/81; TEMP 97.5
== END 2023-12-28 11:17 | disposition home or self-care (01) | DRG 280 ==
LOC: ERS 17:05 → 2SW 19:11 → OBSVTOIN 19:11
PROVIDERS: ADMIT Student in an Organized Health Care Education/Training Program; ATTEND Internal Medicine
DX: I11.0 Hypertensive heart disease with heart failure (principal); I50.23 Acute on chronic systolic (congestive) heart failure; I21.4 Non-ST elevation (NSTEMI) myocardial infarction; I25.10 Atherosclerotic heart disease of native coronary artery without angina pectoris; I25.5 Ischemic cardiomyopathy; E11.9 Type 2 diabetes mellitus without complications; G47.33 Obstructive sleep apnea (adult) (pediatric); E78.5 Hyperlipidemia, unspecified; Z96.651 Presence of right artificial knee joint; Z95.1 Presence of aortocoronary bypass graft; Z86.73 Personal history of transient ischemic attack (TIA), and cerebral infarction without residual deficits; Z79.82 Long term (current) use of aspirin; Z79.899 Other long term (current) drug therapy; Z98.41 Cataract extraction status, right eye; Z98.890 Other specified postprocedural states
CPT/HCPCS: 36415; 36416; 71045; 80048; 80053; 80061; 82010; 83036; 83605; 83690; 83735; 83880; 84145; 84484; 85025; 85730; 93005; 93798; 94640; 96374; 96375; J0456; J0696; J1100; J1644; J1815; J1940; J3475; J7050; J7620

== ENCOUNTER 2024-02-28 05:14 | Inpatient (IN) | payer MEDICARE ==
[2024-02-28 05:43] LABS: #Basophils 0.08 10x3/uL (0.0-0.2); %Basophils 0.9 % (0.0-1.0); %Eosinophils 1.5 % (0.0-10.0); %Lymphocytes 21.1 % (21.0-51.0); %Monocytes 5.8 % (0.0-10.0); %Neutrophils 70.3 % (42.0-75.0); Hematocrit 44.2 % (42.0-52.0); Mean Corpuscular HGB CONC 33.9 g/dL (32.0-36.0); Mean Corpuscular Hemoglobin 30.7 pg (27.0-31.0); Mean Corpuscular Volume 90.6 fL (78.0-98.0); Mean Platelet Volume 10.6 fL (7.4-10.4); Platelet Count 211 10x3/uL (130-400); RBC Distribution Width 13.9 % (11.5-14.5); Red Blood Cell (RBC) Count 4.88 mill/uL (4.70-6.10)
[2024-02-28] MEDS ORDERED: Nitroglycerin 0.4 MG TAB 1 EACH ONE ×2 (06:01)
[2024-02-28 06:06] LABS: Troponin I 0.018 ng/mL (< 0.028)
[2024-02-28 06:25] LABS: ALT (SGPT) 25 U/L (8-55); AST (SGOT) 23 U/L (5-34); Albumin 3.8 g/dL (3.5-5.0); Alkaline Phosphatase 83 U/L (40-110); Anion Gap 12 mmol/L (10-20); BUN (Urea Nitrogen) 19 mg/dL (8.4-25.7); Bilirubin, Total 0.7 mg/dL (0.2-1.2); Calc. Creatinine Clearance 0 mL/min (70-130); Calcium 9.5 mg/dL (7.8-10.44); Carbon Dioxide 20 mmol/L (22-29); Chloride 111 mmol/L (98-107); Estimated GFR 66; Globulin 3.2 g/dL (2.4-3.5); Glucose 154 mg/dL (70-105); Lipase 30 U/L (8-78); Potassium 4.2 mmol/L (3.5-5.1); Sodium 139 mmol/L (136-145)
[2024-02-28] MEDS ORDERED: Furosemide 40 MG (4 mL) VIAL ONE (06:55)
[2024-02-28 07:33] LABS: Troponin I 0.029 ng/mL (< 0.028)
[2024-02-28] MEDS ORDERED: Nitroglycerin 2% Ointment 1 INCH/1 GM Packet ONE (07:59)
[2024-02-28] MEDS ORDERED: Labetalol HCl 100 MG/20 ML VIAL ONE (07:59)
[2024-02-28] MEDS ORDERED: Aspirin Chewable 81 MG TAB ONE (08:00)
[2024-02-28] MEDS ORDERED: Enoxaparin 100 MG (1 mL) SYRINGE ONE (08:00)
[2024-02-28] MEDS ORDERED: Ipratropium/Albuterol 3 ML NEB NEB PRN (08:56)
[2024-02-28] MEDS ORDERED: Dextrose 5% in Water 1,000 ML IV PRN (08:58)
[2024-02-28] MEDS ORDERED: Glucagon 1 MG/ML KIT IM PRN (08:58)
[2024-02-28] MEDS ORDERED: Dextrose 50% Abboject 50 ML SYRINGE SLOW IVP PRN (08:58)
[2024-02-28] MEDS ORDERED: Insulin Lispro 100 UNIT/ML 10 ML VIAL SC PRN (08:58)
[2024-02-28] MEDS ORDERED: Ipratropium Bromide 2.5 ml Neb NEB PRN (11:00)
[2024-02-28 11:20] LABS: Troponin I 0.017 ng/mL (< 0.028)
[2024-02-28 13:20] VITALS: BMI 28.1
[2024-02-28] MEDS ORDERED: Gabapentin 100 MG CAP PO SCH (15:00)
[2024-02-28 15:09] LABS: Troponin I 0.025 ng/mL (< 0.028)
[2024-02-28] MEDS: Furosemide 100 MG (10 mL) VIAL SLOW IVP SCH (16:09)
[2024-02-28] MEDS: hydrALAZINE 20 MG/ML VIAL SLOW IVP PRN (16:09)
[2024-02-28] MEDS: Gabapentin 300 MG CAP PO SCH (16:10)
[2024-02-28] MEDS: Mometasone 200 MCG/Formoterol 5 MCG 120 PUFF INHALER INH SCH (19:26)
[2024-02-28] MEDS: Atorvastatin Calcium 40 MG TAB PO SCH (19:46)
[2024-02-28] MEDS: Apixaban 5 MG TAB PO SCH (19:46)
[2024-02-28] MEDS: Varenicline Tartrate 0.5 MG TAB PO SCH (19:47)
[2024-02-28] MEDS: Ranolazine ER 500 MG TAB PO SCH (19:47)
[2024-02-28] MEDS: Bupropion 150 MG SR.TAB PO SCH (19:47)
[2024-02-28] MEDS: Sacubitril 49 MG/Valsartan 51 MG TABLET PO SCH (19:47)
[2024-02-28] MEDS: busPIRone HCl 10 MG TAB PO SCH (19:47)
[2024-02-28] MEDS: Carvedilol 25 MG TAB PO SCH (19:47)
[2024-02-28] MEDS ORDERED: VARENICLINE TARTRATE PO SCH (21:00)
[2024-02-28] MEDS ORDERED: Non-Formulary Item 1 EACH (Budesonide-Formoterol [Symbicort 160-4.5] 160 MG/4.5 MG Aer) INH SCH (21:00)
[2024-02-28] MEDS ORDERED: Non-Formulary Item 1 EACH (Atorvastatin Calcium [Atorvastatin Calcium] 80 MG Tablet) PO SCH (21:00)
[2024-02-29 04:12] LABS: #Basophils 0.09 10x3/uL (0.0-0.2); %Basophils 1.3 % (0.0-1.0); %Eosinophils 2.7 % (0.0-10.0); %Lymphocytes 23.1 % (21.0-51.0); %Neutrophils 65.6 % (42.0-75.0); Hematocrit 45.9 % (42.0-52.0); Hemoglobin 15.4 g/dL (14.0-18.0); Mean Corpuscular HGB CONC 33.6 g/dL (32.0-36.0); Mean Corpuscular Hemoglobin 30.3 pg (27.0-31.0); Mean Corpuscular Volume 90.4 fL (78.0-98.0); Mean Platelet Volume 10.9 fL (7.4-10.4); Platelet Count 220 10x3/uL (130-400); RBC Distribution Width 13.8 % (11.5-14.5); Red Blood Cell (RBC) Count 5.08 mill/uL (4.70-6.10)
[2024-02-29 04:33] LABS: Anion Gap 15 mmol/L (10-20); BUN (Urea Nitrogen) 17 mg/dL (8.4-25.7); Calc. Creatinine Clearance 87 mL/min (70-130); Calcium 9.4 mg/dL (7.8-10.44); Carbon Dioxide 21 mmol/L (22-29); Chloride 108 mmol/L (98-107); Estimated GFR 74; Glucose 130 mg/dL (70-105); Potassium 3.3 mmol/L (3.5-5.1); Sodium 141 mmol/L (136-145)
[2024-02-29] MEDS ORDERED: Electrolyte Replacement Protocol FS PRN (08:00)
[2024-02-29] MEDS ORDERED: Electrolyte Replacement Protocol 1 EACH FS SCH (08:00)
[2024-02-29] MEDS ORDERED: Tamsulosin HCl 0.4 MG CAP PO SCH (09:00)
[2024-02-29] MEDS ORDERED: Non-Formulary Item 1 EACH (Omeprazole [Omeprazole] 20 MG Tablet.Dr) PO SCH (09:00)
[2024-02-29] MEDS ORDERED: Aspirin 81 mg Enteric Coated Tablet PO SCH (09:00)
[2024-02-29] MEDS: Potassium Chloride 20 MEQ TAB PO SCH (09:19)
[2024-02-29] MEDS: Ezetimibe 10 MG TAB PO SCH (09:19)
[2024-02-29] MEDS: Isosorbide Mononitrate 60 MG ER.TAB PO SCH (09:20)
[2024-02-29] MEDS: Loratadine 10 MG TAB PO SCH (09:20)
[2024-02-29] MEDS: Tamsulosin HCl 0.4 MG CAP PO SCH (09:20)
[2024-02-29] MEDS: Aspirin 81 mg Enteric Coated Tablet PO SCH (09:20)
[2024-02-29] MEDS: Finasteride 5 MG TAB PO SCH (09:21)
[2024-02-29] MEDS: Montelukast Sodium 10 mg Tablet PO SCH (09:21)
[2024-02-29] MEDS: DULoxetine 60 MG CAP PO SCH (09:21)
[2024-02-29] MEDS: Empagliflozin 25 MG TAB PO SCH (09:21)
[2024-02-29] MEDS: Pantoprazole DR 40 MG TAB PO SCH (09:21)
[2024-02-29 14:35] LABS: Potassium 4.6 mmol/L (3.5-5.1)
[2024-03-01 04:34] LABS: #Basophils 0.06 10x3/uL (0.0-0.2); %Basophils 0.7 % (0.0-1.0); %Eosinophils 1.9 % (0.0-10.0); %Lymphocytes 23.7 % (21.0-51.0); %Monocytes 7.7 % (0.0-10.0); %Neutrophils 65.8 % (42.0-75.0); Hematocrit 49.3 % (42.0-52.0); Hemoglobin 16.6 g/dL (14.0-18.0); Mean Corpuscular HGB CONC 33.7 g/dL (32.0-36.0); Mean Corpuscular Hemoglobin 29.9 pg (27.0-31.0); Mean Corpuscular Volume 88.8 fL (78.0-98.0); Mean Platelet Volume 10.6 fL (7.4-10.4); Platelet Count 235 10x3/uL (130-400); RBC Distribution Width 13.9 % (11.5-14.5); Red Blood Cell (RBC) Count 5.55 mill/uL (4.70-6.10)
[2024-03-01 04:53] LABS: Anion Gap 16 mmol/L (10-20); BUN (Urea Nitrogen) 29 mg/dL (8.4-25.7); Calc. Creatinine Clearance 61 mL/min (70-130); Calcium 9.4 mg/dL (7.8-10.44); Carbon Dioxide 23 mmol/L (22-29); Chloride 104 mmol/L (98-107); Estimated GFR 50; Glucose 137 mg/dL (70-105); Magnesium 2.1 mg/dL (1.6-2.6); Potassium 3.7 mmol/L (3.5-5.1); Sodium 139 mmol/L (136-145)
[2024-03-01] MEDS ORDERED: Fludrocortisone Acetate 0.1 MG TAB PO SCH (09:00)
[2024-03-01] MEDS: Spironolactone 25 MG TAB PO SCH (09:52)
[2024-03-01] MEDS: Sodium Chloride 0.9% 250 ML IV SCH (10:42)
[2024-03-01] MEDS: Albumin 25% 25 GM (100 mL) BOT IVPB SCH (16:07)
[2024-03-02 04:42] LABS: #Basophils 0.07 10x3/uL (0.0-0.2); %Basophils 0.8 % (0.0-1.0); %Eosinophils 1.5 % (0.0-10.0); %Lymphocytes 25.6 % (21.0-51.0); %Monocytes 6.9 % (0.0-10.0); Hematocrit 47.5 % (42.0-52.0); Hemoglobin 15.7 g/dL (14.0-18.0); Mean Corpuscular HGB CONC 33.1 g/dL (32.0-36.0); Mean Corpuscular Hemoglobin 29.6 pg (27.0-31.0); Mean Corpuscular Volume 89.6 fL (78.0-98.0); Mean Platelet Volume 10.8 fL (7.4-10.4); Platelet Count 216 10x3/uL (130-400)
[2024-03-02 04:58] LABS: Anion Gap 12 mmol/L (10-20); BUN (Urea Nitrogen) 30 mg/dL (8.4-25.7); Calc. Creatinine Clearance 64 mL/min (70-130); Calcium 9.5 mg/dL (7.8-10.44); Carbon Dioxide 25 mmol/L (22-29); Chloride 106 mmol/L (98-107); Estimated GFR 53; Glucose 128 mg/dL (70-105); Potassium 3.6 mmol/L (3.5-5.1); Sodium 139 mmol/L (136-145)
[2024-03-02 08:35] VITALS: BP 123/78; TEMP 97.5
== END 2024-03-02 11:22 | disposition home or self-care (01) | DRG 291 ==
LOC: ERS 05:14 → ERHOLD 08:03 → 2NO 13:20
PROVIDERS: ADMIT Internal Medicine; ATTEND Family Medicine
PROC: 30233J1 Transfusion of Nonautologous Serum Albumin into Peripheral Vein, Percutaneous Approach (ICD-10-PCS; principal; 2024-03-01)
DX: I11.0 Hypertensive heart disease with heart failure (principal); I50.23 Acute on chronic systolic (congestive) heart failure; N17.9 Acute kidney failure, unspecified; I25.10 Atherosclerotic heart disease of native coronary artery without angina pectoris; I16.0 Hypertensive urgency; Z95.0 Presence of cardiac pacemaker; E11.9 Type 2 diabetes mellitus without complications; E87.6 Hypokalemia; N40.0 Benign prostatic hyperplasia without lower urinary tract symptoms; J44.9 Chronic obstructive pulmonary disease, unspecified; E78.5 Hyperlipidemia, unspecified; K21.9 Gastro-esophageal reflux disease without esophagitis; Z79.82 Long term (current) use of aspirin; Z79.01 Long term (current) use of anticoagulants; Z79.899 Other long term (current) drug therapy; F41.9 Anxiety disorder, unspecified; F32.A Depression, unspecified; Z87.891 Personal history of nicotine dependence; I25.5 Ischemic cardiomyopathy
CPT/HCPCS: 36415; 36416; 71045; 80048; 80053; 83690; 83735; 83880; 84484; 85025; 93005; 94664; 96372; 96374; 96375; J0360; J1650; J1940; J7030; P9047